=== PATIENT | female | born 1950 | race Caucasian/White ===

== ENCOUNTER → 2018-05-05 08:06 | Outpatient (CLI) | payer MEDICARE, OTHER, SELFPAY ==
[2018-05-05 10:09] LABS: Absolute Lymphocyte Count 1.68 X10^3/ul (0.83-4.51); Basophil# 0.01 X10^3/uL; Basophil% 0.2 % (0-1); Eosinophil# 0.11 X10^3/uL; Eosinophils% 2.2 % (0-5); Hematocrit 36.9 % (37-47); Hemoglobin 11.9 g/dl (12.0-15.0); Lymphocyte # 1.68 X10^3/ul (4.0); Lymphocyte % 33.1 % (19-41); Mean Corp Hgb Conc 32.2 g/gl (32-36); Mean Corpuscular Hgb 27.1 pg (27.0-32.0); Mean Corpuscular Volume 84.1 fL (81-99); Mean Platelet Vol. 9.7 fl (6.2-12.0); Monocyte# 0.27 X10^3/uL; Monocyte% 5.3 % (0-10); Neutrophil # 3.01 X10^3/uL (2.7-7.7); Neutrophil % 59.2 % (47-70); Platelet Count 228 K/mm3 (150-450); RBC Distribution Width CV 13.9 % (11.6-14.6); RBC Distribution Width SD 42.4 fl (35.1-43.9); Red Blood Count 4.39 M/mm3 (4.2-5.4); White Blood Count 5.1 K/mm3 (4.4-11.0)
[2018-05-05 10:15] LABS: POSITIVE COUNT NO; POSITIVE DIFFERENTIAL NO; POSITIVE MORPHOLOGY NO
[2018-05-05 10:17] LABS: Anion Gap 8 (5-15); BUN 18 mg/dL (7-18); BUN/Creat Ratio 24.1 RATIO (10-20); Calcium,Total 8.9 mg/dL (8.5-10.1); Chloride 105 mmol/L (98-107); Cholesterol 244 mg/dL (200); Creatinine, Serum 0.75 mg/dL (0.55-1.02); EST Glomerular Filtration Rate 83 mL/min (>60); Est Glom Filt Rate - Afr Amer 100 mL/min (>60); Glucose 85 mg/dL (74-106); High Density Lipoprotein 33 mg/dL; Sodium Level 140 mmol/L (136-145); Triglycerides 448 mg/dL
== END ==
PROVIDERS: Family Provider Family Medicine; PCP Family Medicine; Visit Provider Family Medicine
DX: I10 Essential (primary) hypertension (principal); D50.9 Iron deficiency anemia, unspecified; E78.00 Pure hypercholesterolemia, unspecified
CPT/HCPCS: 36415; 80048; 80061; 85025

== ENCOUNTER → 2018-07-25 13:44 | Outpatient (CLI) | payer MEDICARE, OTHER, SELFPAY ==
--- NOTE | 2018-07-31 22:00 | LEAS ---
Arterial Study - Arterial Study Arterial Study: This is a 67-year-old female with a history of hypertension and hyperlipidemia. The patient presents with physical findings in her lower extremities, including discoloration, that are suspicious for peripheral arterial occlusive disease. The patient is brought to the noninvasive vascular laboratory at this time for the purpose of bilateral noninvasive lower extremity arterial assessment. Doppler signal assessment was used to evaluate the pulses and ankle level bilaterally. The posterior tibial and dorsalis pedis pulses were triphasic bilaterally. Segmental limb pressures were obtained bilaterally. The right ankle pressure, as determined by posterior tibial pulse, was measured at 174 mmHg. The right ankle pressure, as determined by dorsalis pedis pulse, was measured at 160 mmHg. The right digital pressure was measured at 81 mmHg. The left ankle pressure, as determined a posterior tibial pulse, was measured at 157 mmHg. The left ankle pressure, as determined by dorsalis pedis pulse, was measured at 144 mmHg. The left digital pressure was measured at 82 mmHg. Pulse?volume recordings were obtained bilaterally and segmentally. Waveform amplitudes appeared to be satisfactory at all levels bilaterally, including low thigh, calf, ankle, and digital levels. Resting ankle?brachial indices were calculated bilaterally. The resting right ankle?brachial index was calculated to be 1.19. The resting left ankle?brachial index was calculated to be 1.08. Digital-brachial indices were calculated bilaterally. The right digital-brachial index was calculated to be 0.55. The left digital-brachial index was calculated to be 0.56. Impression: Based upon the findings of this resting noninvasive lower extremity arterial study, arterial perfusion to ankle level appears to be bilaterally normal. Triphasic waveforms were noted at ankle level bilaterally. Resting ankle?brachial indices were bilaterally normal. 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 Clinical correlation is advised.
--- NOTE | 2018-07-31 22:07 | LEAS_ITS ---
Arterial Study - Arterial Study Arterial Study: This is a 67-year-old female with a history of hypertension and hyperlipidemia. The patient presents with physical findings in her lower extremities, including discoloration, that are suspicious for peripheral arterial occlusive disease. The patient is brought to the noninvasive vascular laboratory at this time for the purpose of bilateral noninvasive lower extremity arterial assessment. Doppler signal assessment was used to evaluate the pulses and ankle level bila terally. The posterior tibial and dorsalis pedis pulses were triphasic bilaterally. Segmental limb pressures were obtained bilaterally. The right ankle pressure, as determined by posterior tibial pulse, was measured at 174 mmHg. The right ankle pressure, as determined by dorsalis pedis pulse, was measured at 160 mmHg. The right digital pressure was measured at 81 mmHg. The left ankle pressure, as determined a posterior tibial pulse, was measured at 157 mmHg. The left ankle pressure, as determined by dorsalis pedis pulse, was measured at 144 mmHg. The left digital pressure was measured at 82 mmHg. Pulse?volume recordings were obtained bilaterally and segmentally. Waveform amplitudes appeared to be satisfactory at all levels bilaterally, including low thigh, calf, ankle, and digital levels. Resting ankle?brachial indices were calculated bilaterally. The resting right ankle?brachial index was calculated to be 1.19. The resting left ankle?brachial index was calculated to be 1.08. Digital-brachial indices were calculated bilaterally. The right digital- brachial index was calculated to be 0.55. The left digital-brachial index was calculated to be 0.56. Impression: Based upon the findings of this resting noninvasive lower extremity arterial study, arterial perfusion to ankle level appears to be bilaterally normal. Triphasic waveforms were noted at ankle level bilaterally. Resting ankle?brachial indices were bilaterally normal. 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 Clinical correlation is advised.
== END ==
PROVIDERS: Family Provider Family Medicine; PCP Family Medicine; Referring Provider Podiatrist Foot & Ankle Surgery; Visit Provider Podiatrist Foot & Ankle Surgery
DX: I73.9 Peripheral vascular disease, unspecified (principal); I89.8 Other specified noninfective disorders of lymphatic vessels and lymph nodes
CPT/HCPCS: 93923

== ENCOUNTER → 2018-08-03 08:28 | Outpatient (CLI) | payer MEDICARE, OTHER, SELFPAY ==
--- NOTE | 2018-08-03 08:30 | RAD_ITS ---
PROCEDURE: Fluoroscopic guided left shoulder Injection DATE: August 03, 2018. INDICATION: Female, 67 years old. Chronic left shoulder pain. PHYSICIAN: Devon Orozco M.D. MEDICATIONS: 12 mg of betamethasone and 4 cc of 1% lidocaine. 2% Lidocaine administered subcutaneously for local anesthesia. ACCESS SITE: Left shoulder. NEEDLE: 22-gauge spinal needle. FLUOROSCOPY TIME (if supplied): (36 seconds) minutes/seconds. One image was obtained. FINDINGS: The risks, benefits, and alternatives to the procedure were explained to the patient. The specific risks of bleeding, infection, and neurovascular injury were detailed and accepted. Witnessed informed consent was obtained. A 22-gauge spinal needle was positioned under radiographic fluoroscopic localization. Approximately 2 cc of Isovue-300 instilled for localization purposes. Medication was then injected. The patient tolerated the procedure well without any immediate complications. The patient was placed supine with head elevated and returned to the floor in stable condition. RAD/Inj/Asp James Jt Should/Hip/Knee IMPRESSION: 1. Successful fluoroscopic guided left shoulder injection. Electronically Signed: Devon Orozco MD at 9:47 EST Tel [phone], Service support ,
--- OUTSIDE RECORDS SUMMARY | 2018-09-19 03:38 | XMS RPT_ITS ---
:1950 Author Organization OHIP Care Team Providers Name Role Phone EVIE PEREZ Referring Unavailable ANTIONE GIL ([facility]) Referring Unavailable ANTIONE GIL ([facility]) Referring Unavailable EVIE PEREZ Attending Unavailable EVIE PEREZ Referring Unavailable Maynor Black Attending Unavailable Maynor Black Referring Unavailable Maynor Black Primary Care Unavailable Maynor Black Attending Unavailable Maynor Black Primary Care Unavailable Bren Elias Attending Unavailable Bren Elias Referring Unavailable Maynor Black Primary Care Unavailable Anton Zimmerman Attending Unavailable Anton Zimmerman Referring Unavailable Maynor Black Primary Care Unavailable PROBLEMS PROBLEMS DATE TYPE CONDITION / CODE ATTENDING STATUS SOURCE 05/11/2018 Unknown I10 - Essential Maynor Black Active [place] (primary) [facility] hypertension / Hospital I10(ICD-10) Repository 04/20/2018 Active Unknown / NA Active [facility] UNK(Unknown) [facility] [place] Repository 03/11/2018 Active Encounter for NA Active [facility] screening [facility] [place] mammogram for Repository malignant neoplasm of breast / Z12.31(ICD-10) PROCEDURES PROCEDURES No Procedure Records FoundRESULTS RESULTS LIPID PROFILE Collected: 09/13/2018 Status: F Source: [place] 10:05 AM [facility] REPOSITORY Order Comment: Order Date: 05/16/18 Order Info: [id number] - LIPID TYPE CODE TESTS RESULT OUT OF RANGE REFERENCE UNITS LAB L501.4900 200 mg/dL High CHOL 247 Result Comment: <200 mg/dL Desirable 200-240 mg/dL Borderline >240 mg/dL High Risk LAB L501.5000 mg/dL High TRIG 204 Result Comment: The drugs N-Acetylcysteine and Metamizole may falsely depress this assay. Serum Triglycerides Reference Interval Normal <150 mg/dL Borderline high 150 - 199 mg/dL High 200 - 499 mg/dL Very High > or = 500 mg/dL LAB L501.6400 mg/dL Normal HDL 45 Result Comment: The drugs N-Acetylcysteine and Metamizole may falsely depress this assay. Reference Range HDL <40 mg/dL Low HDL Cholesterol HDL >or= 60 mg/dL High HDL Cholesterol LAB L501.6500 0-130 mg/dL High LDL 161 LAB L501.6600 5-40 mg/dL High VLDL 41 Performed By: #### L500.4100 #### [facility] [address] [place], [address] INJ/ASP MARI JT Observed: 08/03/2018 Status: F Source: [place] SHOULD/HIP/KNEE 8:30 AM [facility] Imaging Services [address] [place] [address] Inj/Asp Mari Jt Should/Hip/Knee MR#: [id number] Acct: [id number] Name: SHELLI BRADLEY Rep #: [id number] : 1950 F 67 From: Devon Orozco MD PCP: Maynor Black MD Status: REG CLI Study: Inj/Asp Mari Jt Should/Hip/Knee Date of Exam: 08/03/18 Exam# [id number] Ordering Dr: Anton Zimmerman MD PROCEDURE: Fluoroscopic guided left shoulder Injection DATE: August 03, 2018. INDICATION: Female, 67 years old. Chronic left shoulder pain. PHYSICIAN: Devon Orozco M.D. MEDICATIONS: 12 mg of betamethasone and 4 cc of 1% lidocaine. 2% Lidocaine administered subcutaneously for local anesthesia. ACCESS SITE: Left shoulder. NEEDLE: 22-gauge spinal needle. FLUOROSCOPY TIME (if supplied): (36 seconds) minutes/seconds. One image was obtained. FINDINGS: The risks, benefits, and alternatives to the procedure were explained to the patient. The specific risks of bleeding, infection, and neurovascular injury were detailed and accepted. Witnessed informed consent was obtained. A 22-gauge spinal needle was positioned under radiographic fluoroscopic localization. Approximately 2 cc of Isovue-300 instilled for localization purposes. Medication was then injected. The patient tolerated the procedure well without any immediate complications. The patient was placed supine with head elevated and returned to the floor in stable condition. RAD/Inj/Asp Mari Jt Should/Hip/Knee IMPRESSION: 1. Successful fluoroscopic guided left shoulder injection. Electronically Signed: Devon Orozco MD at 9:47 EST Tel [phone], Service support , CC: Maynor Black MD; Anton Zimmerman MD Personal Chef: Signed LOWER EXT ARTERIAL Observed: 07/31/2018 Status: F Source: [facility] 10:07 PM [facility] Cardiovascular Services [address] [place] [id number] 07/31/18 2200 MR#: [id number] Acct: [id number] Name: ISABELANT GUNNLila Tim Rep #: [id number] : 1950 67 From: Brad Holder MD Attending Dr: Bren Elias DPM Status: REG CLI Ordering Dr: Date: 07/31/18 Location: CVS Sex: F C Admitted: Arterial Study - Arterial Study Arterial Study: This is a 67-year-old female with a history of hypertension and hyperlipidemia. The patient presents with physical findings in her lower extremities, including discoloration, that are suspicious for peripheral arterial occlusive disease. The patient is brought to the noninvasive vascular laboratory at this time for the purpose of bilateral noninvasive lower extremity arterial assessment. Doppler signal assessment was used to evaluate the pulses and ankle level bilaterally. The posterior tibial and dorsalis pedis pulses were triphasic bilaterally. Segmental limb pressures were obtained bilaterally. The right ankle pressure, as determined by posterior tibial pulse, was measured at 174 mmHg. The right ankle pressure, as determined by dorsalis pedis pulse, was measured at 160 mmHg. The right digital pressure was measured at 81 mmHg. The left ankle pressure, as determined a posterior tibial pulse, was measured at 157 mmHg. The left ankle pressure, as determined by dorsalis pedis pulse, was measured at 144 mmHg. The left digital pressure was measured at 82 mmHg. Pulse volume recordings were obtained bilaterally and segmentally. Waveform amplitudes appeared to be satisfactory at all levels bilaterally, including low thigh, calf, ankle, and digital levels. Resting ankle brachial indices were calculated bilaterally. The resting right ankle brachial index was calculated to be 1.19. The resting left ankle brachial index was calculated to be 1.08. Digital-brachial indices were calculated bilaterally. The right digital-brachial index was calculated to be 0.55. The left digital-brachial index was calculated to be 0.56. Impression: Based upon the findings of this resting noninvasive lower extremity arterial study, arterial perfusion to ankle level appears to be bilaterally normal. Triphasic waveforms were noted at ankle level bilaterally. Resting ankle brachial indices were bilaterally normal. 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 Clinical correlation is advised. 07/31/182206 <Electronically signed by Brad Holder MD> Date Brad Holder MD CC: XIOMARA Elias; Maynor Black MD Date Dictated: 07/31/182199 Date Transcribed: 07/31/182199 Personal Chef: SUZANNA Signed PROGRESS Observed: 06/13/2018 Status: COMPLETED Source: [place] 9:13 AM [facility] [place] REPOSITORY HNO ID: [id number] Author: Dinora Llamasf Service: (none) Author Type: Nurse Practitioner Type: Progress Notes Filed: 06/13/2018 10:05 AM Note Text: Shelli Bradley is a 67 year old who presents for her annual gynecologic exam with complaints, stress incontince. Postmenopausal: Yes HRT use: No. Last Pap: 2017 normal HPV: 2012 negative History of abnormal pap: No Last mammogram: 2018 call back normal History of abnormal mammogram: No Sexually active: Yes Pain with intercourse: No Postcoital bleeding: No Hot flashes: No Night sweats: No Vaginal dryness: No Obstetric History T3 L3 SAB0 TAB0 Ectopic0 Multiple0 Live Births0 Comment: 5 grandkids PAST MEDICAL HISTORY Diagnosis Date - Allergic rhinitis, cause unspecified Allergic rhinitis - Essential hypertension, benign MILD PAST SURGICAL HISTORY Procedure Laterality Date - CARPAL TUNNEL Right 09/2016 and trigger finger - CARPAL TUNNEL Left 01/2018 with trigger finger - ORAL SURGERY PROCEDURE [place] FAMILY HISTORY Problem Relation Age of Onset - Hypertension Mother - Heart Father CA - Breast Cancer Sister 64 brca negative - Heart Paternal Uncle CA - Cancer Paternal Uncle - Cancer Paternal Uncle - Cancer Paternal Aunt SOCIAL HISTORY Social History Substance Use Topics - Smoking status: Never Smoker - Smokeless tobacco: Never Used - Alcohol use Yes Comment: Rarely REVIEW OF SYSTEMS Abdomen: No abdominal pain, nausea, vomiting, diarrhea, or constipation. No bloating, early satiety, indigestion, or increased flatulence. Bladder: No dysuria, gross hematuria, urinary frequency, +urinary urgency some incontinence Breast: No breast lumps, nipple d/c, overlying skin changes, redness or skin retraction Allergies and current medication updated:Yes EXAM: Ht 5' 1.5 (1.56m) Wt 190 lb (86.2kg) LMP 01/28/2005 BMI 35.32 kg/(m2). GENERAL: pleasant, female in no apparent distress HEENT: Normocephalic, atraumatic, mucus membranes moist and no lesions NECK: Supple, full range of motion, no adenopathy and thyroid normal DERMATOLOGY: Normal, without lesions, non-icteric and non-hirsute BREAST: soft, non-tender, symmetric, no dominant mass, normal nipple-areolar complex, no lymphadenopathy and no nipple discharge CHEST: Normal inspiratory effort ABDOMEN: soft, non-tender and no masses PELVIC: external genitalia normal, normal Bartholin's glands, urethra, Graball's glands, no vulvar lesions, no cervical lesions, physiologic discharge present, normal appearing perineal body and perianal region, grade 1 cystocele BIMANUAL: uterus normal size, shape and consistency, no adnexal masses, non-tender and no cervical motion tenderness RECTOVAGINAL: deferred. NEURO: alert and oriented x3,exam grossly non-focal EXTREMITIES: normal ASSESSMENT/PLAN: 1) Health maintenance: Pap/HPV screening no longer needed Mammogram up to date Nutrition, exercise and routine health maintenance exams reviewed. Calcium/Vitamin D supplementation information provided. 2) Follow up one year or sooner as needed Evie Perez MD CNOV Observed: 06/13/2018 Status: COMPLETED Source: [place] 9:00 AM [facility] REPOSITORY Office Visit (WOOB) SHELLI BRADLEY ([id number]) 1950 F Date Time Provider Department 06/13/18 9:00 AM DINORA SALCEDO (HUN[place]) WOOB During your visit today, we recorded the following information about you: Blood pressure Weight Height 132/74 86.2 kg 1.562 m Dinora Salcedo APRN.CNP 06/13/2018 10:05 AM Signed Shelli Bradley is a 67 year old who presents for her annual gynecologic exam with complaints, stress incontince. Postmenopausal: Yes HRT use: No. Last Pap: 2016 normal HPV: 2011 negative History of abnormal pap: No Last mammogram: 2018 call back normal History of abnormal mammogram: No Sexually active: Yes Pain with intercourse: No Postcoital bleeding: No Hot flashes: No Night sweats: No Vaginal dryness: No Obstetric History T3 L3 SAB0 TAB0 Ectopic0 Multiple0 Live Births0 Comment: 5 grandkids PAST MEDICAL HISTORY Diagnosis Date - Allergic rhinitis, cause unspecified Allergic rhinitis - Essential hypertension, benign MILD PAST SURGICAL HISTORY Procedure Laterality Date - CARPAL TUNNEL Right 09/2016 and trigger finger - CARPAL TUNNEL Left 01/2018 with trigger finger - ORAL SURGERY PROCEDURE [place] FAMILY HISTORY Problem Relation Age of Onset - Hypertension Mother - Heart Father CA - Breast Cancer Sister 64 brca negative - Heart Paternal Uncle CA - Cancer Paternal Uncle - Cancer Paternal Uncle - Cancer Paternal Aunt SOCIAL HISTORY Social History Substance Use Topics - Smoking status: Never Smoker - Smokeless tobacco: Never Used - Alcohol use Yes Comment: Rarely REVIEW OF SYSTEMS Abdomen: No abdominal pain, nausea, vomiting, diarrhea, or constipation. No bloating, early satiety, indigestion, or increased flatulence. Bladder: No dysuria, gross hematuria, urinary frequency, +urinary urgency some incontinence Breast: No breast lumps, nipple d/c, overlying skin changes, redness or skin retraction Allergies and current medication updated:Yes EXAM: Ht 5' 1.5 (1.56m) Wt 190 lb (86.2kg) LMP 01/28/2005 BMI 35.32 kg/(m2). GENERAL: pleasant, female in no apparent distress HEENT: Normocephalic, atraumatic, mucus membranes moist and no lesions NECK: Supple, full range of motion, no adenopathy and thyroid normal DERMATOLOGY: Normal, without lesions, non-icteric and non-hirsute BREAST: soft, non-tender, symmetric, no dominant mass, normal nipple-areolar complex, no lymphadenopathy and no nipple discharge CHEST: Normal inspiratory effort ABDOMEN: soft, non-tender and no masses PELVIC: external genitalia normal, normal Bartholin's glands, urethra, Graball's glands, no vulvar lesions, no cervical lesions, physiologic discharge present, normal appearing perineal body and perianal region, grade 1 cystocele BIMANUAL: uterus normal size, shape and consistency, no adnexal masses, non-tender and no cervical motion tenderness RECTOVAGINAL: deferred. NEURO: alert and oriented x3,exam grossly non-focal EXTREMITIES: normal ASSESSMENT/PLAN: 1) Health maintenance: Pap/HPV screening no longer needed Mammogram up to date Nutrition, exercise and routine health maintenance exams reviewed. Calcium/Vitamin D supplementation information provided. 2) Follow up one year or sooner as needed Evie Perez MD Referring Provider: EVIE PEREZ [[id number]] Allergies As of Date: 06/13/2018 Noted Allergy Reaction SEASONAL ALLERGIES 12/24/2014 14 - Other: See Comments Comments: Environmental Allergies-Sinus Issues Date Reviewed: 06/13/2018 Reviewed by: Dinora Nunez) [place] - Fully Assessed Reason for Visit: Yearly Exam [187] Primary Visit Diagnosis:Encounter for routine gynecologic examination in Medicare patient [Z01.419] Other Visit Diagnosis:Encounter for screening mammogram for breast cancer [Z12.31] Order(s):[facility] SCREENING [[id number]] Order #: [id number] FUTURE Prescriptions as of 06/13/2018 Sig: VENTOLIN HFA 90 MCG/ACTUATION* DICLOFENAC SODIUM 75 MG TABLE* ROSUVASTATIN 10 MG TABLET OMEPRAZOLE MAGNESIUM 20 MG TA* Take 20 mg by mouth. LISINOPRIL 10 MG-HYDROCHLOROT* METOPROLOL SUCCINATE ER 100 M* COMPOUNDED PRESCRIPTION Allergy shots MULTIVITAMIN ORAL Take by mouth. ASPIRIN, BUFFERED 81 MG TABLET Take by mouth. JOSEFINA ORAL Take by mouth. ZOLOFT 50 MG TABLET Problem List As Of Date 06/13/2018 Noted Resolved Family history of BRCA gene positive [Z84.81] INVALID FOR* Medications Discontinued During This Encounter hydrochlorothiazide (HYDRODIURIL, ES* 06/13/2018 Class: Historical Med Route: ORAL Sig: Take 25 mg by mouth once daily. Disc: Dosage adjustment TOPROL XL 100 MG 24 HR TAB 0 02/08/2006 06/13/2018 Class: Historical Med Route: ORAL Sig: Disc: Reason for discontinue is not on file. CETIRIZINE HCL (ZYRTEC ORAL) 06/13/2018 Class: Historical Med Route: ORAL Sig: Take by mouth. Disc: Discontinued by Patient Disposition: Return in 1 year (on 06/13/2019) for Annual Exam. Follow-up and Disposition History Recorded Encounter Status:Closed by DINORA SALCEDO on 06/13/18 CBC W/DIFF, AUTOMATED Collected: 05/05/2018 Status: F Source: [place] 8:09 AM [facility] Order Comment: Order Date: 03/15/18 Order Info: [id number] - CBCD TYPE CODE TESTS RESULT OUT OF RANGE REFERENCE UNITS LAB L100.1000 4.4-11.0 K/mm3 Normal WBC 5.1 LAB L100.1200 4.2-5.4 M/mm3 Normal RBC 4.39 LAB L100.1300 12.0-15.0 g/dl Low HGB 11.9 LAB L100.1400 37-47 % Low HCT 36.9 LAB L100.1500 81-99 fL Normal MCV 84.1 LAB L100.1600 27.0-32.0 pg Normal MCH 27.1 LAB L100.1700 32-36 g/gl Normal MCHC 32.2 LAB L100.1810 11.6-14.6 % Normal RDW CV 13.9 LAB L100.1820 35.1-43.9 fl Normal RDW SD 42.4 LAB L100.1900 150-450 K/mm3 Normal PLT 228 LAB L100.2000 6.2-12.0 fl Normal MPV 9.7 LAB L100.2100 47-70 % Normal NEUT% 59.2 LAB L100.2200 19-41 % Normal LY% 33.1 LAB L100.2300 0-10 % Normal MONO% 5.3 LAB L100.2400 0-5 % Normal EO% 2.2 LAB L100.2500 0-1 % Normal BASO% 0.2 LAB L100.2550 0.0-0.9 % Normal IM GRAN % 0.000 Result Comment: IG% - Immature Granulocytes (promyelocytes, myelocytes and metamyelocytes) > 1% indicates that a LEFT SHIFT is Present. LAB L100.2620 2.0-7.7 X10 3/uL Normal Absolute Neut 3.0 LAB L100.2720 0.83-4.51 X10 3/ul Normal Absolute Lymph 1.68 Performed By: #### L100.0100, L500.2500, L500.4100 #### [facility] [address] [place], [address] BASIC METABOLIC Collected: 05/05/2018 Status: F Source: [place] PROFILE ([facility]) 8:09 AM [facility] Order Comment: Order Date: 03/15/18 Order Info: [id number] - BMP Order Info: [id number] - LIPID TYPE CODE TESTS RESULT OUT OF RANGE REFERENCE UNITS LAB L501.0100 74-106 mg/dL Normal GLU 85 Result Comment: Please note revised GLUCOSE reference range effective 2017. LAB L501.1000 7-18 mg/dL Normal BUN 18 LAB L501.1100 0.55-1.02 mg/dL Normal CREAT,SERUM 0.75 Result Comment: The validity of the calculated GFR AND GFRAA in patients over 70 years has not been determined. Clinical correlation is essential. LAB L501.1110 >60 mL/min Normal EST GFR 83 Result Comment: Non- GFR Calc LAB L501.1115 >60 mL/min Normal EST GFR - AA 100 Result Comment: GFR Calc LAB L501.1300 10-20 RATIO High BUN/CRE 24.1 LAB L501.2200 8.5-10.1 mg/dL CA Normal 8.9 LAB L501.5300 136-145 mmol/L NA Normal 140 LAB L501.5600 3.5-5.1 mmol/L K Normal 4.0 LAB L501.5900 98-107 mmol/L CL Normal 105 LAB L501.6100 21.0-32.0 mmol/L Normal CO2 27.0 LAB L501.6200 5-15 Normal GAP 8 Performed By: #### L100.0100, L500.2500, L500.4100 #### [facility] [address] [place], [address] LIPID PROFILE Collected: 05/05/2018 Status: F Source: [place] 8:09 AM [facility] Order Comment: Order Date: 03/15/18 Order Info: [id number] - BMP Order Info: 17213-9 - LIPID TYPE CODE TESTS RESULT OUT OF RANGE REFERENCE UNITS LAB L501.4900 200 mg/dL High CHOL 244 Result Comment: <200 mg/dL Desirable 200-240 mg/dL Borderline >240 mg/dL High Risk LAB L501.5000 mg/dL High TRIG 448 Result Comment: The drugs N-Acetylcysteine and Metamizole may falsely depress this assay. TRIGLYCERIDE IS GREATER THAN 400 mg/dL. LDL RESULT IS INVALID AND WILL NOT BE REPORTED. Serum Triglycerides Reference Interval Normal <150 mg/dL Borderline high 150 - 199 mg/dL High 200 - 499 mg/dL Very High > or = 500 mg/dL LAB L501.6400 mg/dL Low HDL 33 Result Comment: The drugs N-Acetylcysteine and Metamizole may falsely depress this assay. Reference Range HDL <40 mg/dL Low HDL Cholesterol HDL >or= 60 mg/dL High HDL Cholesterol LAB L501.6500 0-130 mg/dL Test Normal not performed LDL LAB L501.6600 5-40 mg/dL Test Normal not performed VLDL Performed By: #### L100.0100, L500.2500, L500.4100 #### [place] [facility] [place], [address] PROGRESS Observed: 04/20/2018 Status: COMPLETED Source: [place] 9:04 AM [facility] [place] REPOSITORY HNO ID: [id number] Author: Sweta Asencio Rdms Service: (none) Author Type: (none) Type: Progress Notes Filed: 04/20/2018 9:05 AM Note Text: Radiology Service Progress Note PATIENT NAME: Shelli Bradley DATE OF SERVICE: April 20, 2018 TIME: 9:04 AM PATIENT IDENTITY VERIFICATION COMPLETED USING TWO (2) METHODS: Patient confirmed name verbally and Date of . PATIENT GENDER DATA: Female. status: : No status: NO. PATIENT RELEVANT IMPLANT DATA REVIEWED: Not Applicable RADIOLOGY DEPARTMENT: Ultrasound PERIPHERAL IV DATA: Not applicable SIGNED BY: Sweta Asencio Rdms April 20, 2018 9:04 AM [facility]CO Observed: 04/20/2018 Status: COMPLETED Source: [place] 8:56 AM [facility] REPOSITORY HNO ID: [id number] Author: Mammography Coordinator Service: (none) Author Type: Physician Type: Letter Filed: 04/21/2018 11:31 PM Note Text: April 20, 2018 PID: [id number] Shelli Campos Isabellexy [address] [place] [address] Dear Ms. Bradley, We are pleased to inform you that the results of your recent breast imaging exam on 04/20/2018 are normal and we recommend that you return to your annual screening Mammography schedule. Early detection of cancer is very important. We also understand recommendations regarding breast cancer screening are controversial. Please discuss with your primary care provider which strategy is best for you and whether a mammogram is right for you. Your imaging studies and report will be kept on file at [facility] as part of your permanent medical record and are available for your continuing care. Thank you for allowing us to help in meeting your health care needs. Sincerely, Dr. Bustamante Interpreting Radiologist [facility] (Return to Annual Mammogram schedule) [facility] Observed: 04/20/2018 Status: COMPLETED Source: [place] 8:56 AM [facility] REPOSITORY HNO ID: [id number] Author: Mammography Coordinator Service: (none) Author Type: Physician Type: Letter Filed: 04/21/2018 11:31 PM Note Text: April 20, 2018 PID: [id number] Shelli Bradley [address] [place] [address] Dear Ms. Bradley, We are pleased to inform you that the results of your recent breast imaging exam on 04/20/2018 are normal and we recommend that you return to your annual screening Mammography schedule. Early detection of cancer is very important. We also understand recommendations regarding breast cancer screening are controversial. Please discuss with your primary care provider which strategy is best for you and whether a mammogram is right for you. Your imaging studies and report will be kept on file at [facility] as part of your permanent medical record and are available for your continuing care. Thank you for allowing us to help in meeting your health care needs. Sincerely, Dr. Bustamante Interpreting Radiologist [facility] (Return to Annual Mammogram schedule) [facility] Observed: 04/20/2018 Status: F Source: [facility] 8:52 AM [facility] REPOSITORY * * *Final Report* * * DATE OF EXAM: Apr 20 2018 8:52AM [facility] [id number] - Meilimei US BREAST LTD LT / PROCEDURE REASON: call back left breast / abnormal mammogram * * * * Physician Interpretation * * * * #[id number] - [facility] DIAGNOSTIC LT UNILATERAL LEFT DIGITAL DIAGNOSTIC MAMMOGRAM WITH CAD: 04/20/2018 HISTORY: Call Back Left Breast / Abnormal Mammogram. RESULT: TECHNIQUE: The study was acquired using full field digital technology and interpreted from soft copy. Current study was also evaluated with a Computer Aided Detection (CAD). Comparison is made to exams dated: 03/11/2018 mammogram, 03/04/2017 mammogram, 01/15/2016 mammogram, and 12/24/2014 mammogram - [facility]. The tissue of the left breast is predominantly fatty. Prior density is no longer seen in the left breast. No significant masses, calcifications, or other findings are seen in the breast. NEGATIVE There is no mammographic evidence of malignancy. #[id number] - [facility] Epuramat BREAST LTD LT ULTRASOUND OF LEFT BREAST: 04/20/2018 RESULT: Comparison is made to exams dated: 03/11/2018 mammogram, 03/04/2017 mammogram, 01/15/2016 mammogram, and 12/24/2014 mammogram - [facility]. Real-time ultrasound of the left breast was performed. A few normal appearing retroareolar ducts are seen. There are no masses otherwise. IMPRESSION: BENIGN FINDING There is no sonographic evidence of malignancy. Return to annual mammogram screening schedule is recommended. Maximiliano beltrán/daphnie:04/20/2018 08:56:33 Mobile Application Architect: Jammie OLEA(Aimee)(Katty), [facility] letter sent: Return to Annual Mammogram BI-RADS: 1 Negative Ultrasound BI-RADS: 2 Benign finding Personal Chef: Daphnie Transcribe Date/Time: Apr 20 2018 8:37A Dictated by : MAXIMILIANO BUSTAMANTE MD This examination was interpreted and the report reviewed and electronically signed by: MAXIMILIANO BUSTAMANTE MD on Apr 20 2018 8:56AM EST [id number] [facility] DIAGNOSTIC LT Observed: 04/20/2018 Status: F Source: [place] 8:37 AM [facility] REPOSITORY * * *Final Report* * * DATE OF EXAM: Apr 20 2018 8:37AM [facility] 0621 - [facility] DIAGNOSTIC LT / PROCEDURE REASON: call back left breast / abnormal mammogram * * * * Physician Interpretation * * * * RESULT: #[id number] - [facility] DIAGNOSTIC LT UNILATERAL LEFT DIGITAL DIAGNOSTIC MAMMOGRAM WITH CAD: 04/20/2018 HISTORY: Call Back Left Breast / Abnormal Mammogram. RESULT: TECHNIQUE: The study was acquired using full field digital technology and interpreted from soft copy. Current study was also evaluated with a Computer Aided Detection (CAD). Comparison is made to exams dated: 03/11/2018 mammogram, 03/04/2017 mammogram, 01/15/2016 mammogram, and 12/24/2014 mammogram - [facility]. The tissue of the left breast is predominantly fatty. Prior density is no longer seen in the left breast. No significant masses, calcifications, or other findings are seen in the breast. NEGATIVE There is no mammographic evidence of malignancy. #[id number] - [facility] US BREAST LTD LT ULTRASOUND OF LEFT BREAST: 04/20/2018 RESULT: Comparison is made to exams dated: 03/11/2018 mammogram, 03/04/2017 mammogram, 01/15/2016 mammogram, and 12/24/2014 mammogram - [facility]. Real-time ultrasound of the left breast was performed. A few normal appearing retroareolar ducts are seen. There are no masses otherwise. IMPRESSION: BENIGN FINDING There is no sonographic evidence of malignancy. Return to annual mammogram screening schedule is recommended. Maximiliano beltrán/daphnie:04/20/2018 08:56:33 Mobile Application Architect: Jammie OLEA (R)(Katty), [facility] letter sent: Return to Annual Mammogram BI-RADS: 1 Negative Ultrasound BI-RADS: 2 Benign finding Personal Chef: Daphnie Transcribe Date/Time: Apr 20 2018 8:37A Dictated by: MAXIMILIANO BUSTAMANTE MD This examination was interpreted and the report reviewed and electronically signed by: MAXIMILIANO BUSTAMANTE MD on Apr 20 2018 8:56AM EST [id number] CNCO Observed: 03/11/2018 Status: COMPLETED Source: [place] 5:29 PM [facility] REPOSITORY HNO ID: [id number] Author: Mammography Coordinator Service: (none) Author Type: Physician Type: Letter Filed: 03/14/2018 11:33 PM Note Text: March 11, 2018 PID: [id number] Shelli Bradley [address] [place] [address] Dear Ms. Bradley, Your recent breast imaging exam on 03/11/2018 showed a possible finding that requires additional imaging studies for a complete evaluation. Most such findings are probably benign (not cancer). Please call [phone] or [phone] to schedule an appointment for your additional imaging if you have not already done so. Your breast images and report will be kept on file here as part of your permanent medical record and are available for your continuing care. Thank you for allowing us to help in meeting your health care needs. Sincerely, Dr. Aragon Interpreting Radiologist [facility] (Additional imaging) PROCEDURE Observed: 03/11/2018 Status: COMPLETED Source: [place] 9:10 AM [facility] REPOSITORY HNO ID: [id number] Author: Marcy Shahid (Rt) Service: (none) Author Type: Otolaryngology Rep Type: Procedures Filed: 03/11/2018 9:10 AM Note Text: Radiology Service Progress Note PATIENT NAME: Shelli Bradley DATE OF SERVICE: March 11, 2018 TIME: 9:10 AM PATIENT IDENTITY VERIFICATION COMPLETED USING TWO (2) METHODS: Patient confirmed name verbally and Date of . PATIENT GENDER DATA: Female. status: : No status: NO. PATIENT RELEVANT IMPLANT DATA REVIEWED: Not Applicable RADIOLOGY DEPARTMENT: [facility] DATA: Not applicable SIGNED BY: RT Kleber March 11, 2018 9:10 AM [facility] SCREENING Observed: 03/11/2018 Status: F Source: [place] 9:09 AM [facility] REPOSITORY * * *Final Report* * * DATE OF EXAM: Mar 11 2018 9:09AM [facility] 0581 - [facility] SCREENING / PROCEDURE REASON: Encounter for screening mammogram for malignant neoplasm of breast * * * * Physician Interpretation * * * * RESULT: #[id number] - [facility] SCREENING BILATERAL DIGITAL SCREENING MAMMOGRAM WITH CAD: 03/11/2018 HISTORY: /Screening Mammogram - patient reports NO symptoms. RESULT: TECHNIQUE: The study was acquired using full field digital technology and interpreted from soft copy. Current study was also evaluated with a Computer Aided Detection (CAD). Comparison is made to exams dated: 03/04/2017 mammogram, 01/15/2016 mammogram, 12/24/2014 mammogram, 11/28/2012 mammogram, and 11/04/2011 mammogram - [facility]. The tissue of both breasts is predominantly fatty. There is a focal asymmetry in the left breast central to the nipple. This is a tubular asymmetry in the retroareolar region. No other significant masses, calcifications, or other findings are seen in either breast. IMPRESSION: INCOMPLETE: NEEDS ADDITIONAL IMAGING EVALUATION The focal asymmetry in the left breast is indeterminate. This is a tubular asymmetry in the retroareolar region which likely represents a dilated duct. Additional views with possible ultrasound are recommended. The exam was reviewed by a staff physician. Belgica hinson jd/penrad:03/11/2018 17:29:10 Mobile Application Architect: Nancy OLEA(R)(M), [facility] letter sent: Additional Imaging Needed Mammogram BI-RADS: 0 Incomplete: needs additional imaging evaluation If this report indicates you need additional imaging, and it has NOT yet been performed, please call , to schedule. We sincerely thank you for choosing the [facility] for your breast imaging needs. Personal Chef: Daphnie Transcribe Date/Time: Mar 11 2018 9:09A Dictated by: EDWARD MAGAÑA MD This examination was interpreted and the report reviewed and electronically signed by: BELGICA ARAGON MD on Mar 11 2018 5:29PM EST [id number] ALLERGIES ALLERGIES DATE TYPE / CODE NAME / CODE REACTION SEVERITY SOURCE 12/24/2014 Environ/420 SEASONAL OTHER: SEE C [facility] [id number](SNOM ALLERGIES [facility] [place] [facility]) Repository 06/07/2013 Drug No Known Unknown [facility] Allergy/416 Allergies/U32028 [facility] 187856(SNOM 0388(RXNORM) Repository ED CT) ENCOUNTERS ENCOUNTERS ADMIT/DISCHARGE ACCOUNT ADMITTING ENCOUNTER LOCATION SOURCE NUMBER CLASS 09/13/2018 [id number] [facility] ing:MTLAB Repository 08/03/2018 [id number] [facility] ing:RAD Repository 07/25/2018 [id number] [facility] ing:[facility] Repository 06/13/2018/06/14/[id number] Repository 05/05/2018 [id number] [facility] ing:MFPLAB Repository 04/20/2018/04/20/20 [id number] Ambulatory [address] Repository 04/20/2018/04/20/20 [id number] Ambulatory [address] Repository 03/11/2018/03/11/[id number] Repository PAYERS PAYERS ENCOUNTER GUARANTOR PAYER SUBSCRIBER SOURCE 09/13/2018 [id number] Insurance:SELF PAY [facility] YAMILA dc Number: Effective Repository [id number]: ([phone]) Date:2018-09-13 [phone] () 08/03/2018 SHELLI P Primary SHELLI P [place] [id number] Insurance:MEDICARE LINNICKDOB: Community [place] PART A [facility] [id number]: Repository [id number]: 330 [id number] [phone] (HP) Date:2018-07-25 08/03/2018 Secondary SHELLI P [place] Insurance:AARPPolicy LINNICKDOB: Community Number: [id number] Hospital [id number] Repository Date:[id number] [facility] [id number], [place] [address]AM: 08/03/2018 Tertiary NOT GIVENUNK Michelle Insurance:SELF PAY [facility] Number: Effective Repository Date:2018-07-25 07/25/2018 SHELLI P Primary SHELLI P Michelle [id number] Insurance:MEDICARE LINNICKDOB: [facility] [id number] [place] Number: Repository [id number]: 330 [id number] [phone] () Date:2018-07-20 07/25/2018 Secondary SHELLI P Michelle Insurance:AARPPolicy LINNICKDOB: Community Number: [id number] [id number] Repository Date:[id number] [facility] [id number], [place] [address]OM: 07/25/2018 Tertiary NOT GIVENUNK Michelle Insurance:SELF PAY [facility] Number: Effective Repository Date:2018-07-20 05/05/2018 Shelli P Primary Shelli P Michelle [id number] Insurance:MEDICARE LinnickDOB: Community [place] PART A [id number] [place] Number: Repository [id number]: 330 [id number] [phone] (HP) Date:2018-05-05 05/05/2018 Secondary Shelli P Michelle Insurance:Trever LopezB: Community Number: [id number] Hospital [id number] Repository Date:[id number], [place] [address]VR: 05/05/2018 Tertiary NOT GIVENUNK Michelle Insurance:SELF PAY [facility] Number: Effective Repository Date:2018-05-05
== END ==
PROVIDERS: Family Provider Family Medicine; PCP Family Medicine; Referring Provider Specialist; Visit Provider Specialist
DX: M19.012 Primary osteoarthritis, left shoulder (principal)
CPT/HCPCS: 20610; 77002; J0702

== ENCOUNTER → 2018-09-13 09:54 | Outpatient (CLI) | payer MEDICARE, SELFPAY ==
[2018-09-13 12:46] LABS: Cholesterol 247 mg/dL (200); High Density Lipoprotein 45 mg/dL; Triglycerides 204 mg/dL; Very Low Density Lipoprotein 41 mg/dL (5-40)
--- OUTSIDE RECORDS SUMMARY | 2018-11-15 12:14 | XMS RPT_ITS ---
:1950 Author Organization OHIP Care Team Providers Name Role Phone EVIE PEREZ Referring Unavailable ANTIONE GIL (CN) Referring Unavailable ANTIONE GIL (CN) Referring Unavailable EVIE PEREZ Attending Unavailable EVIE PEREZ Referring Unavailable Maynor Black Attending Unavailable Maynor Black Referring Unavailable Black, Maynor Primary Care Unavailable Maynor Black Attending Unavailable Wayne, Maynor Primary Care Unavailable Bren Elias Attending Unavailable Bren Elias Referring Unavailable Maynor Black Primary Care Unavailable Anton Zimmerman Attending Unavailable Anton Zimmerman Referring Unavailable Maynor Black Primary Care Unavailable PROBLEMS PROBLEMS DATE TYPE CONDITION / CODE ATTENDING STATUS SOURCE Unknown 272.0 - Pure Maynor Black Active [place] 9 hypercholesterolemia / Community 272.0(ICD-9) Hospital Repository Unknown E78.00 - Pure Maynor Black Active [place] 9 hypercholesterolemia, Community unspecified / Hospital E78.00(ICD-10) Repository Unknown I10 - Essential (primary) Maynor Black Active Michelle 8 hypertension / Community I10(ICD-10) Hospital Repository Active Unknown / UNK(Unknown) NA Active [address] Main [place] Repository Active Encounter for screening NA Active [place] [address] mammogram for malignant Clinic Main neoplasm of breast / [place] Z12.31(ICD-10) Repository PROCEDURES PROCEDURES No Procedure Records FoundRESULTS RESULTS LIPID PROFILE Collected: 09/13/2018 Status: F Source: [place] 10:05 AM [facility] REPOSITORY Order Comment: Order Date: 05/16/18 Order Info: [id number] - LIPID TYPE CODE TESTS RESULT OUT [...] VLDL 41 Performed By: #### L500.4100 #### [facility] [address] [place], [address] INJ/ASP MARI JT Observed: 08/03/2018 Status: F Source: [place]HEL[place] SHOULD/HIP/KNEE 8:30 AM [facility] REPOSITORY [facility] Imaging Services [address] [place] [address] Inj/Asp Mari Jt Should/Hip/Knee MR#: [id number] Acct: [id number] Name: ANT BRADLEYLila Tim Rep #: [id number] : 1950 F 67 From: Devon Orozco MD PCP: Maynor Black MD Status: REG CLI Study: Inj/Asp Mari Jt Should/Hip/Knee Date of Exam: 08/03/18 Exam# [id number] Ordering Dr: Anton Zimmerman MD PROCEDURE: Fluoroscopic [...] Devon Orozco MD at 9:47 EST Tel [phone], Service support , CC: Maynor Black MD; Anton Zimmerman MD Rn Ante Partum: Signed LOWER EXT ARTERIAL Observed: 07/31/2018 Status: F Source: [place] STUDY 10:07 PM [facility] REPOSITORY [facility] Cardiovascular Services [address] [place] [address] 07/31/18 2200 MR#: [id number] Acct: [id number] Name: ANT BRADLEYLila Tim Rep #: [id number] : 1950 67 From: Brad Holder MD [...] MD Date Dictated: 07/31/182199 Date Transcribed: 07/31/182199 Rn Ante Partum: SUZANNA Signed PROGRESS Observed: 06/13/2018 Status: COMPLETED Source: [place] 9:13 AM [facility] REPOSITORY O ID: [id number] Author: Dinora Nunez) [place] Service: (none) Author Type: Nurse Practitioner Type: [...] with trigger finger - ORAL SURGERY PROCEDURE [place] FAMILY HISTORY Problem Relation Age of Onset - Hypertension Mother - Heart Father ME - Breast Cancer Sister 64 brca negative - Heart Paternal Uncle ME - Cancer Paternal Uncle - Cancer Paternal [...] external genitalia normal, normal Bartholin's glands, urethra, [place]'s glands, no vulvar lesions, no cervical lesions, [...] MD CNOV Observed: 06/13/2018 Status: COMPLETED Source: [place] 9:00 AM [facility] REPOSITORY Office Visit (WOOB) SHELLI BRADLEY ([id number]) 1950 F Date Time Provider Department 06/13/18 [...] use: No. Last Pap: 2017 normal HPV: 2011 negative History of abnormal [...] with trigger finger - ORAL SURGERY PROCEDURE [place] FAMILY HISTORY Problem Relation Age of Onset - Hypertension Mother - Heart Father [place] - Breast Cancer Sister 64 brca negative - Heart Paternal Uncle [place] - Cancer Paternal Uncle - Cancer Paternal [...] external genitalia normal, normal Bartholin's glands, urethra, [place]'s glands, no vulvar lesions, no cervical lesions, [...] Evie Perez MD Referring Provider: EVIE PEREZ [[id number]] Allergies As of Date: 06/13/2018 Noted Allergy Reaction SEASONAL ALLERGIES 12/24/2014 14 - Other: See Comments Comments: Environmental Allergies-Sinus Issues Date Reviewed: 06/13/2018 Reviewed by: Dinora Nunez) Matias - Fully Assessed Reason for Visit: Yearly Exam [187] Primary Visit Diagnosis:Encounter for routine gynecologic examination in Medicare patient [Z01.419] Other Visit Diagnosis:Encounter for screening mammogram for breast cancer [Z12.31] Order(s):[facility] SCREENING [3424960] Order #: [id number] FUTURE Prescriptions as of 06/13/2018 Sig: VENTOLIN [...] 05/05/2018 Status: F Source: [place]HELLE 8:09 AM [facility] REPOSITORY Order Comment: Order Date: 03/15/18 Order [...] Performed By: #### L100.0100, L500.2500, L500.4100 #### [facility] [address] [place], [address] BASIC METABOLIC Collected: 05/05/2018 Status: F Source: [place] PROFILE (BMP) 8:09 AM [facility] REPOSITORY Order Comment: Order Date: 03/15/18 Order Info: [id number] - BMP Order Info: [id number] - LIPID TYPE CODE TESTS RESULT OUT [...] Performed By: #### L100.0100, L500.2500, L500.4100 #### [facility] [address] [place], [place], [address] LIPID PROFILE Collected: 05/05/2018 Status: F Source: [place] 8:09 AM [facility] REPOSITORY Order Comment: Order Date: 03/15/18 Order Info: [id number] - BMP Order Info: [id number] - LIPID TYPE CODE TESTS RESULT OUT [...] By: #### L100.0100, L500.2500, L500.4100 #### [facility] [address] [place], [address] PROGRESS Observed: 04/20/2018 Status: COMPLETED Source: [place] 9:04 AM [facility] REPOSITORY HNO ID: [id number] Author: Sweta Asencio Rdms Service: (none) Author [...] AM CNCO Observed: 04/20/2018 Status: COMPLETED Source: [place] 8:56 AM [facility] REPOSITORY HNO ID: [id number] Author: Mammography Coordinator Service: (none) Author Type: Physician Type: Letter Filed: 04/21/2018 11:31 PM Note Text: April 20, 2018 PID: [id number] Shelli TimDebby Kirk [address] [place] [address] Dear Ms. Bradley, We are pleased to [...] report will be kept on file at [facility] as part of your permanent medical record and are available for your continuing care. Thank you for allowing us to help in meeting your health care needs. Sincerely, Dr. Bustamante Interpreting Radiologist [facility] (Return to Annual Mammogram schedule) CNCO Observed: 04/20/2018 Status: COMPLETED Source: [place] 8:56 AM [facility] REPOSITORY HNO ID: [id number] Author: Mammography Coordinator Service: (none) Author Type: Physician Type: Letter Filed: 04/21/2018 11:31 PM Note Text: April 20, 2018 PID: [id number] Shelli Bradley [address] [place] [address] Dear Ms. Bradley, We are pleased to [...] report will be kept on file at [facility] as part of your permanent medical record and are available for your continuing care. Thank you for allowing us to help in meeting your health care needs. Sincerely, Dr. Bustamante Interpreting Radiologist [facility] (Return to Annual Mammogram schedule) [facility] InMobi BREAST LTD Observed: 04/20/2018 Status: F Source: [facility] 8:52 AM [facility] REPOSITORY * * *Final Report* * * DATE OF EXAM: Apr 20 2018 8:52AM [facility] 0593 - [facility] US BREAST LTD LT / PROCEDURE REASON: call back left breast / abnormal mammogram * * * * Physician Interpretation * * * * #[id number] - [facility] DIAGNOSTIC LT UNILATERAL LEFT DIGITAL DIAGNOSTIC MAMMOGRAM WITH CAD: 04/20/2018 HISTORY: Call Back Left Breast / Abnormal Mammogram. RESULT: TECHNIQUE: The study was acquired using full field digital technology and interpreted from soft copy. Current study was also evaluated with a Computer Aided Detection (CAD). Comparison is made to exams dated: 03/11/2018 mammogram, 03/04/2017 mammogram, 01/15/2016 mammogram, and 12/24/2014 mammogram - [facility]. The tissue of the left breast is predominantly fatty. Prior density is no longer seen in the left breast. No significant masses, calcifications, or other findings are seen in the breast. NEGATIVE There is no mammographic evidence of malignancy. #[id number] - [facility] US BREAST LTD LT ULTRASOUND OF LEFT BREAST: 04/20/2018 RESULT: Comparison is made to exams dated: 03/11/2018 mammogram, 03/04/2017 mammogram, 01/15/2016 mammogram, and 12/24/2014 mammogram - [facility]. Real-time ultrasound of the left breast was performed. A few normal appearing retroareolar ducts are seen. There are no masses otherwise. IMPRESSION: BENIGN FINDING There is no sonographic evidence of malignancy. Return to annual mammogram screening schedule is recommended. Maximiliano beltrán/daphnie:04/20/2018 08:56:33 Phlebotomy Specialist: Jammie OLEA (R)(Katty), [facility] letter sent: Return to Annual Mammogram BI-RADS: 1 Negative Ultrasound BI-RADS: 2 Benign finding Rn Ante Partum: Daphnie Transcribe Date/Time: Apr 20 2018 8:37A Dictated by : MAXIMILIANO BUSTAMANTE MD This examination was interpreted and the report reviewed and electronically signed by: MAXIMILIANO BUSTAMANTE MD on Apr 20 2018 8:56AM EST [id number] [facility] DIAGNOSTIC LT Observed: 04/20/2018 Status: F Source: [place] 8:37 AM [facility] REPOSITORY * * *Final Report* * * DATE OF EXAM: Apr 20 2018 8:37AM [facility] 0621 - [facility] DIAGNOSTIC LT / PROCEDURE REASON: call back left breast / abnormal mammogram * * * * Physician Interpretation * * * * RESULT: #[id number] - [facility] DIAGNOSTIC LT UNILATERAL LEFT DIGITAL DIAGNOSTIC MAMMOGRAM WITH CAD: 04/20/2018 HISTORY: Call Back Left Breast / Abnormal Mammogram. RESULT: TECHNIQUE: The study was acquired using full field digital technology and interpreted from soft copy. Current study was also evaluated with a Computer Aided Detection (CAD). Comparison is made to exams dated: 03/11/2018 mammogram, 03/04/2017 mammogram, 01/15/2016 mammogram, and 12/24/2014 mammogram - [facility]. The tissue of the left breast is predominantly fatty. Prior density is no longer seen in the left breast. No significant masses, calcifications, or other findings are seen in the breast. NEGATIVE There is no mammographic evidence of malignancy. #[id number] - [facility] US BREAST LTD LT ULTRASOUND OF LEFT BREAST: 04/20/2018 RESULT: Comparison is made to exams dated: 03/11/2018 mammogram, 03/04/2017 mammogram, 01/15/2016 mammogram, and 12/24/2014 mammogram - [facility]. Real-time ultrasound of the left breast was performed. A few normal appearing retroareolar ducts are seen. There are no masses otherwise. IMPRESSION: BENIGN FINDING There is no sonographic evidence of malignancy. Return to annual mammogram screening schedule is recommended. Maximiliano beltrán/daphnie:04/20/2018 08:56:33 Phlebotomy Specialist: Jammie COOPER (R)), [facility] letter sent: Return to Annual Mammogram BI-RADS: 1 Negative Ultrasound BI-RADS: 2 Benign finding Rn Ante Partum: Daphnie Transcribe Date/Time: Apr 20 2018 8:37A Dictated by: MAXIMILIANO BUSTAMANTE MD This examination was interpreted and the report reviewed and electronically signed by: MAXIMILIANO BUSTAMANTE MD on Apr 20 2018 8:56AM EST [id number] CNCO Observed: 03/11/2018 Status: COMPLETED Source: [place] 5:29 PM [facility] REPOSITORY [facility] ID: [id number] Author: Mammography Coordinator Service: (none) Author Type: Physician Type: Letter Filed: 03/14/2018 11:33 PM Note Text: March 11, 2018 PID: [id number] Shelli Bradley [address] [place] [address] Dear Ms. Bradley, Your recent breast imaging exam on 03/11/2018 showed a possible finding that requires additional imaging studies for a complete evaluation. Most such findings are probably benign (not cancer). Please call [phone] or [phone] to schedule an appointment for your additional imaging if you have not already done so. Your breast images and report will be kept on file here as part of your permanent medical record and are available for your continuing care. Thank you for allowing us to help in meeting your health care needs. Sincerely, Dr. Aragon Interpreting Radiologist [facility] (Additional imaging) PROCEDURE Observed: 03/11/2018 Status: COMPLETED Source: [place] 9:10 AM [facility] REPOSITORY HNO ID: [id number] Author: Nancy () Marcy Don Service: (none) Author Type: Printing Sign Machine Operator Type: Procedures Filed: 03/11/2018 9:10 AM Note Text: Radiology Service Progress Note PATIENT NAME: Shelli Bradley DATE OF SERVICE: March 11, 2018 TIME: 9:10 AM PATIENT IDENTITY VERIFICATION COMPLETED USING TWO (2) METHODS: Patient confirmed name verbally and Date of . PATIENT GENDER DATA: Female. status: : No status: NO. PATIENT RELEVANT IMPLANT DATA REVIEWED: Not Applicable RADIOLOGY DEPARTMENT: [facility] IV DATA: Not applicable SIGNED BY: RT Kleber March 11, 2018 9:[address] [facility] SCREENING Observed: 03/11/2018 Status: F Source: [place] 9:09 AM [facility] REPOSITORY * * *Final Report* * * DATE OF EXAM: Mar 11 2018 9:09AM [facility] 0581 - [facility] SCREENING / PROCEDURE REASON: Encounter for screening mammogram for malignant neoplasm of breast * * * * Physician Interpretation * * * * RESULT: #[id number] - [facility] SCREENING BILATERAL DIGITAL SCREENING MAMMOGRAM WITH CAD: 03/11/2018 HISTORY: /Screening Mammogram - patient reports NO symptoms. RESULT: TECHNIQUE: The study was acquired using full field digital technology and interpreted from soft copy. Current study was also evaluated with a Computer Aided Detection (CAD). Comparison is made to exams dated: 03/04/2017 mammogram, 01/15/2016 mammogram, 12/24/2014 mammogram, 11/28/2012 mammogram, and 11/04/2011 mammogram - [facility]. The tissue of both breasts is predominantly [...] was reviewed by a staff physician. Belgica Gauthier M.D. toño hinson/daphnie:03/11/2018 17:29:10 Phlebotomy Specialist: Nancy COOPER (R)), [facility] letter sent: Additional Imaging Needed Mammogram BI-RADS: 0 Incomplete: needs additional imaging evaluation If this report indicates you need additional imaging, and it has NOT yet been performed, please call , to schedule. We sincerely thank you for choosing the [facility] for your breast imaging needs. Rn Ante Partum: Daphnie Transcribe Date/Time: Mar 11 2018 9:09A Dictated by: EDWARD GAUTHIER MD This examination was interpreted and the report reviewed and electronically signed by: BELGICA ARAGON MD on Mar 11 2018 5:29PM EST [id number] ALLERGIES ALLERGIES DATE TYPE / CODE NAME / CODE REACTION SEVERITY SOURCE 12/24/2014 Environ/420 SEASONAL OTHER: SEE C [facility] 996752(SNOM ALLERGIES Main [place] ED CT) Repository 06/07/2013 Drug No Known Unknown [facility] Allergy/416 Allergies/R14606 [facility] 046256(SNOM 0388(RXNORM) Repository ED CT) ENCOUNTERS ENCOUNTERS ADMIT/DISCHARGE ACCOUNT ADMITTING ENCOUNTER LOCATION SOURCE NUMBER CLASS 09/13/2018 [id number] [facility] ing:MTLAB Repository 08/03/2018 [id number] [facility] ing:RAD Repository 07/25/2018 [id number] Ambulatory [facility] ing:CVS Repository 06/13/2018/06/14/20 [id number] Ambulatory [address] Repository 05/05/2018 [id number] [facility] ing:MFPLAB Repository 04/20/2018/04/20/20 [id number] Ambulatory [address] Repository 04/20/2018/04/20/20 [id number] Ambulatory [address] Repository 03/11/2018/03/11/[id number] Repository PAYERS PAYERS ENCOUNTER GUARANTOR PAYER SUBSCRIBER SOURCE 09/13/2018 SHELLI P Primary SHELLI P [place] [id number] Insurance:MEDICARE LINNICKDOB[facility] [id number] [place] Number: Repository [address]Xlh: 330 [id number] [phone] (HP) Date:2018-09-13 09/13/2018 Secondary SHELLI P Michelle Insurance:MMO LINNICKDOB: Community MEDICAREPolicy [id number] Hospital Number: Repository [id number] Date:0511-13-96[address] [address]XU: 09/13/2018 Tertiary NOT GIVENUNK [place] Insurance:SELF PAY [facility] Number: Effective Repository Date:2018-09-13 08/03/2018 SHELLI P Primary SHELLI P [place] [id number] Insurance:MEDICARE LINNICKDOB: [facility] PART A [facility] [id number] [place] Number: Repository [address]Wjk: 330 [id number] [phone] (HP) Date:2018-07-25 08/03/2018 Secondary SHELLI P [place] Insurance:AARPPolicy LINNICKDOB: Community Number: [id number] [id number] Repository Date:4989-21-98HR [address], [place] [address]HC: 08/03/2018 Tertiary NOT GIVENUNK Michelle Insurance:SELF PAY [facility] Number: Effective Repository Date:2018-07-25 07/25/2018 SHELLI P Primary SHELLI P [place] [id number] Insurance:MEDICARE LINNICKDOB: [facility] PART A [facility] [id number] [place] Number: Repository [address]Xrw: 330 [id number] [phone] (HP) Date:2018-07-20 07/25/2018 Secondary SHELLI P Michelle Insurance:AARPPolicy LINNICKDOB: Community Number: [id number] Hospital [id number] Repository Date:0770-35-22UA [facility] [place], [place] [address]DF: 07/25/2018 Tertiary NOT GIVENUNK [place] Insurance:SELF PAY [facility] Number: Effective Repository Date:2018-07-20 05/05/2018 Shelli P Primary Shelli P Michelle [id number] Insurance:MEDICARE LinnickDOB: [facility] [id number]: Repository [address]Vay: [phone] [id number] [phone] () Date:2018-05-05 05/05/2018 Secondary Shelli P Michelle Insurance:AARPPolicy LinnickDOB: Community Number: [id number] Hospital [id number] Repository Date:9119-60-12IS [facility] [address], [place] [address]ZI: 05/05/2018 Tertiary NOT GIVENUNK Michelle Insurance:SELF PAY [facility] Number: Effective Repository Date:2018-05-05
== END ==
LOC: LAB 09:59 → MTLAB 10:00
PROVIDERS: Family Provider Family Medicine; PCP Family Medicine; Referring Provider Family Medicine; Visit Provider Family Medicine
DX: E78.00 Pure hypercholesterolemia, unspecified (principal)
CPT/HCPCS: 36415; 80061

== ENCOUNTER → 2019-01-05 08:16 | Outpatient (CLI) | payer MEDICARE, OTHER, SELFPAY ==
--- NOTE | 2019-01-05 08:00 | RAD_ITS ---
PROCEDURE: Fluoroscopic guided left shoulder injection. DATE: January 05, 2019 INDICATION: Female, 68 years old. Left shoulder pain. PHYSICIAN: Devon Orozco M.D. MEDICATIONS: 12 mg about the metatarsal and 4 cc of 1% lidocaine. 2% lidocaine administered subcutaneously for local anesthesia. ACCESS SITE: Left shoulder. NEEDLE: 22-gauge spinal needle. FLUOROSCOPY TIME (if supplied): (0:55) minutes/seconds FINDINGS: The risks, benefits, and alternatives to the procedure were explained to the patient. The specific risks of bleeding, infection, and neurovascular injury were detailed and accepted. Witnessed informed consent was obtained. A 22-gauge spinal needle was positioned under radiographic fluoroscopic localization. Approximately 2 cc of Isovue-300 instilled for localization purposes. Medication was then injected. The patient tolerated the procedure well without any immediate complications. RAD/Inj/Asp James Jt Should/Hip/Knee IMPRESSION: 1. Successful fluoroscopic guided left shoulder injection.. Electronically Signed: Devon Orozco, at 9:19 EDT , Service support ,
== END ==
PROVIDERS: Family Provider Family Medicine; PCP Family Medicine; Referring Provider Specialist; Visit Provider Specialist
DX: M19.012 Primary osteoarthritis, left shoulder (principal)
CPT/HCPCS: 20610; 77002; Q9967; J0702

== ENCOUNTER → 2019-05-25 10:17 | Outpatient (CLI) | payer MEDICARE, OTHER, SELFPAY ==
[2019-05-25 12:26] LABS: Absolute Lymphocyte Count 1.47 X10^3/uL (0.83-4.51); Absolute Neutrophil Count 3.5 X10^3/uL (2.0-7.7); Basophil# 0.02 X10^3/uL; Basophil% 0.4 % (0-1); Eosinophil# 0.11 X10^3/uL; Hematocrit 37.9 % (37-47); Hemoglobin 12.1 g/dL (12.0-15.0); Lymphocyte # 1.47 X10^3/ul (4.0); Lymphocyte % 26.9 % (19-41); Mean Corp Hgb Conc 31.9 g/dL (32-36); Mean Corpuscular Hgb 27.7 pg (27.0-32.0); Mean Corpuscular Volume 86.7 fL (81-99); Mean Platelet Vol. 10.3 fl (6.2-12.0); Monocyte% 7.3 % (0-10); NRBC Flagged by Analyzer 0 % (0-5); Neutrophil # 3.45 X10^3/uL (2.7-7.7); Neutrophil % 63.2 % (47-70); Platelet Count 252 K/mm3 (150-450); RBC Distribution Width CV 13.2 % (11.6-14.6); RBC Distribution Width SD 41.5 fl (35.1-43.9); Red Blood Count 4.37 M/mm3 (4.2-5.4); White Blood Count 5.5 K/mm3 (4.4-11.0)
[2019-05-25 12:30] LABS: Anion Gap 8 (5-15); BUN 23 mg/dL (7-18); Calcium,Total 9.1 mg/dL (8.5-10.1); Chloride 109 mmol/L (98-107); Creatinine, Serum 0.92 mg/dL (0.55-1.02); EST Glomerular Filtration Rate 65 mL/min (>60); Est Glom Filt Rate - Afr Amer 78 mL/min (>60); Glucose 86 mg/dL (74-106); Potassium 4.4 mmol/L (3.5-5.1); Sodium Level 142 mmol/L (136-145)
== END ==
PROVIDERS: Family Provider Family Medicine; PCP Family Medicine; Referring Provider Family Medicine; Visit Provider Family Medicine
DX: Z01.818 Encounter for other preprocedural examination (principal)
CPT/HCPCS: 36415; 80048; 85025

== ENCOUNTER 2019-08-28 13:30 | Outpatient (RCR) | payer MEDICARE, OTHER, SELFPAY ==
--- NOTE | 2019-08-28 14:10 | HP.PTDCSUM ---
HP - PT D/C Summary It has been my pleasure to treat SCOTT BRADLEY under orders from SHIELA COVARRUBIAS, for the diagnosis of Left shoulder primary osteoarthritis for a total of 11 visit(s). Discharge Date: 08/28/19 Please see the following information for a summary of their discharge status. - Subjective Subjective: I see the dr tomorrow - Pain Right Shoulder Pain Intensity (Out of 10): 0 - Overall Improvement % Improvement: 85 - Objective Objective/Function: L . R 30. need to improve ext rot rations on left - Goals Goal 1:: Understand the healing process and doctors limitations Goal Progress: Progressing Goal 2:: Improve ROM by 10% Goal Progress: Goal Met Goal 3:: Progress through each Phase of protocol. Goal Progress: Goal Met - Plan Plan: discharge to [facility] - D/C Information Discharge Comments: Progressed nicely will develop H&Wprogram for her to follow. If there are questions or concerns regarding this patient's physical therapy, please feel free to call me at [phone]. Thank you for the referral of this patient. Sincerely, Ministerio Valdivia, PT, MARY, SCS, CSCS
== END 2019-08-28 19:00 | disposition home or self-care (01) ==
LOC: PT 13:30
PROVIDERS: Family Provider Family Medicine; PCP Family Medicine
DX: M19.012 Primary osteoarthritis, left shoulder (principal)
CPT/HCPCS: 97014; 97110; 97140; 97162; G0283

== ENCOUNTER → 2020-04-18 09:49 | Outpatient (CLI) | payer MEDICARE, OTHER, SELFPAY ==
[2020-04-18 13:00] LABS: ALB/GLOB Ratio 1.1 RATIO (0.9-2.4); AST(SGOT) 17 U/L (15-37); Alanine Aminotransfer ALT/SGPT 26 U/L (13-56); Albumin, Serum 3.7 g/dL (3.2-5.0); Alkaline Phosphatase 75 U/L (45-117); Anion Gap 6 (5-15); BUN 15 mg/dL (7-18); BUN/Creat Ratio 19.8 RATIO (10-20); Chloride 106 mmol/L (98-107); Cholesterol 265 mg/dL (200); Creatinine, Serum 0.76 mg/dL (0.55-1.02); EST Glomerular Filtration Rate 81 mL/min (>60); Est Glom Filt Rate - Afr Amer 98 mL/min (>60); Globulin 3.3 g/dL (2.2-4.2); Glucose 88 mg/dL (74-106); High Density Lipoprotein 39 mg/dL; Sodium Level 139 mmol/L (136-145); Triglycerides 382 mg/dL; Very Low Density Lipoprotein 76 mg/dL (5-40)
== END ==
PROVIDERS: PCP Family Medicine; Referring Provider Family Medicine; Visit Provider Family Medicine
DX: I10 Essential (primary) hypertension (principal); E78.00 Pure hypercholesterolemia, unspecified
CPT/HCPCS: 36415; 80053; 80061

== ENCOUNTER → 2020-10-30 08:40 | Outpatient (CLI) | payer MEDICARE, OTHER, SELFPAY ==
[2020-10-30 10:44] LABS: ALB/GLOB Ratio 1.2 RATIO (0.9-2.4); AST(SGOT) 27 U/L (15-37); Alanine Aminotransfer ALT/SGPT 42 U/L (13-56); Alkaline Phosphatase 61 U/L (45-117); Anion Gap 6 (5-15); BUN 15 mg/dL (7-18); BUN/Creat Ratio 14.2 RATIO (10-20); Calcium,Total 8.9 mg/dL (8.5-10.1); Chloride 104 mmol/L (98-107); Cholesterol 215 mg/dL (200); Creatinine, Serum 1.06 mg/dL (0.55-1.02); EST Glomerular Filtration Rate 55 mL/min (>60); Est Glom Filt Rate - Afr Amer 66 mL/min (>60); Globulin 3.3 g/dL (2.2-4.2); Glucose 103 mg/dL (74-106); High Density Lipoprotein 52 mg/dL; Potassium 3.9 mmol/L (3.5-5.1); Protein, Total 7.3 g/dL (6.4-8.2); Sodium Level 138 mmol/L (136-145); Triglycerides 160 mg/dL; Very Low Density Lipoprotein 32 mg/dL (5-40)
== END ==
PROVIDERS: PCP Family Medicine; Referring Provider Family Medicine; Visit Provider Family Medicine
DX: E78.00 Pure hypercholesterolemia, unspecified (principal)
CPT/HCPCS: 36415; 80053; 80061

== ENCOUNTER → 2021-05-08 08:32 | Outpatient (CLI) | payer MEDICARE, OTHER, SELFPAY ==
[2021-05-08 10:18] LABS: Absolute Lymphocyte Count 1.63 X10^3/uL (0.83-4.51); Absolute Neutrophil Count 3.1 X10^3/uL (2.0-7.7); Basophil# 0.01 X10^3/uL; Basophil% 0.2 % (0-1); Eosinophil# 0.13 X10^3/uL; Eosinophils% 2.5 % (0-5); Hematocrit 37.9 % (37-47); Hemoglobin 12.3 g/dL (12.0-15.0); Lymphocyte # 1.63 X10^3/ul (0.83-4.51); Lymphocyte % 31.6 % (19-41); Mean Corp Hgb Conc 32.5 g/dL (32-36); Mean Corpuscular Hgb 28.1 pg (27.0-32.0); Mean Corpuscular Volume 86.5 fL (81-99); Mean Platelet Vol. 10.3 fl (6.2-12.0); Monocyte# 0.31 X10^3/uL; NRBC Flagged by Analyzer 0 % (0-5); Neutrophil # 3.07 X10^3/uL (2.7-7.7); Neutrophil % 59.5 % (47-70); Platelet Count 288 K/mm3 (150-450); RBC Distribution Width CV 13.2 % (11.6-14.6); RBC Distribution Width SD 41.6 fl (35.1-43.9); Red Blood Count 4.38 M/mm3 (4.2-5.4); White Blood Count 5.2 K/mm3 (4.4-11.0)
[2021-05-08 10:57] LABS: AST(SGOT) 15 U/L (15-37); Alanine Aminotransfer ALT/SGPT 29 U/L (13-56); Albumin, Serum 3.8 g/dL (3.2-5.0); Alkaline Phosphatase 55 U/L (45-117); Anion Gap 4 (5-15); BUN 28 mg/dL (7-18); BUN/Creat Ratio 24.3 RATIO (10-20); Calcium,Total 9.4 mg/dL (8.5-10.1); Chloride 106 mmol/L (98-107); Cholesterol 224 mg/dL (200); Creatinine, Serum 1.15 mg/dL (0.55-1.02); EST Glomerular Filtration Rate 50 mL/min (>60); Est Glom Filt Rate - Afr Amer 60 mL/min (>60); Globulin 3.7 g/dL (2.2-4.2); Glucose 86 mg/dL (74-106); High Density Lipoprotein 48 mg/dL; Potassium 4.4 mmol/L (3.5-5.1); Protein, Total 7.5 g/dL (6.4-8.2); Sodium Level 139 mmol/L (136-145); Triglycerides 200 mg/dL; Very Low Density Lipoprotein 40 mg/dL (5-40)
== END ==
PROVIDERS: PCP Family Medicine; Referring Provider Family Medicine; Visit Provider Family Medicine
DX: E78.00 Pure hypercholesterolemia, unspecified (principal)
CPT/HCPCS: 36415; 80053; 80061; 85025

== ENCOUNTER 2021-06-09 11:30 | Outpatient (RCR) | payer MEDICARE, OTHER, SELFPAY ==
--- NOTE | 2021-05-12 12:03 | HP.PTEVAL ---
Patient's Visit Information SCOTT BRADLEY is a 70 year old F referred to Physical Therapy by Dr. Maynor Ramos MD with a diagnosis of vertigo. Date of Evaluation: 05/12/21 Physical Therapist: OLGA Harry - Visit Plan Frequency: 1-2x /Week Duration: 3 Weeks Plan: 1-2X/ week for 3 weeks for repositioning of crystals - Subjective Pt reports that she has had issues with this over the years. It has been on and off. She has it again now and by the time she went to the ENT and did not have the room spinning with the manuver. It is not right. She is able to function but it is worse when looking up and when she sits in the recliner at night and goes from reclined to sitting and she has to sit a minute. Watering plants with arm overhead caused it too. She has not done the senior fitness classes due to the dizziness and her schedule. Dr suggested doing PT. She is not sleeping on the L side at all because it makes it worse and describes it as the room spins when rolls to the L side and spins for seconds and then settles. Rolling to her R side is fine. Dr said to sleep at 45 degree angle. - Objective + Roll test to the L for horizontal nystagmus. -Roll test to the R. -B Hallpike. Did the BBQ roll to the L... Then L Hallpike became positive for torsional nystagmus lasting 20 seconds and treated with the L EPLY.... Pt felt off walking out of the clinic - Balance/Special Test Scores Dizziness Score: 20 - Goals Goal 1:: I HEP Goal Time Frame: 4-6 Weeks Goal 2:: Be able to roll to the L side at night with out having dizziness Goal Time Frame: 4-6 Weeks Goal 3:: Be able to look up towards the ceiling without having dizziness Goal Time Frame: 4-6 Weeks - Rehabilitation Potential Rehabilitation Potential: Good - Anticipated Interventions Patient/Client Instruction: Educate patient on: Condition, Plan of Care For the Purpose of:: To improve nutrient delivery to tissue, To increase oxygenation perfusion, To improve muscle performance and motor function, To improve ability to perform ADL's, To increase tolerance to activity/condition/position, To decrease level of supervision to perform tasks, To improve ability of physical actions for home/community/work/leisure, To improve gait and locomotor functions Therapeutic Exercise to Include: Strength training, Balance training, Passive ROM, Active ROM For the Purpose of:: To improve muscle performance and motor function, To improve ability to perform ADL's, To increase tolerance to activity/condition/position, To improve performance and independence with ADL's, To decrease level of supervision to perform tasks, To improve gait and locomotor functions, To improve health of tissue, To improve balance, To improve safety with gait Manual Therapy Techniques to Include: Passive ROM, Other For the Purpose of:: To improve gait and locomotor functions, To improve balance, To improve safety with gait Thank you for the opportunity to evaluate your patient. For Medicare and Medicare HMO plans, please review the plan of care and approve it. It will need to be FAXED BACK to us at [phone] for Medicare purposes. For Medicare only, by signing this I certify the plan of care. Please let me know if there are questions or concerns regarding this plan of care. Physician Signature: Date:
--- NOTE | 2021-06-09 11:55 | HP.PTDCSUM ---
It has been my pleasure to treat SCOTT BRADLEY referred by Dr. Maynor Ramos MD, with the diagnosis of vertigo for a total of 5 visit(s). Discharge Date: 06/09/21 Please see the following information for a summary of their discharge status. Subjective: Pt reports that she is doing well but every now and then she will get a quick feeling like it will come back on and it doesn't. She is still doing her Gandara Daroff and AROM neck ext ROM exercises. She feels that she is ready to continue on her own and leg her Dr know if her symptoms return % Improvement: 95 Objective/Function: R Hallpike was negative for nystagmus but slight dizziness and then did the R Eply. Repeated R Hallpike and did not feel it Goal 1:: I HEP Goal 2:: Be able to roll to the L side at night with out having dizziness Goal Progress: Progressing Goal 3:: Be able to look up towards the ceiling without having dizziness Goal Progress: Progressing Plan: Dc PT to HEP of standing neck ext Discharge Comments: DC PT to HEP If there are questions or concerns regarding this patient's physical therapy, please feel free to call me at [phone]. Thank you for the referral of this patient. Sincerely, Teresa Russo, MPT Balance/Gait/Functional tests - Balance/Special Test Scores Dizziness Score: 10
== END 2021-06-09 19:00 | disposition home or self-care (01) ==
LOC: PT 11:30
PROVIDERS: PCP Family Medicine; Referring Provider Family Medicine; Visit Provider Family Medicine
DX: R42 Dizziness and giddiness (principal)
CPT/HCPCS: 97161; 97530

== ENCOUNTER 2021-11-06 11:30 | Outpatient (RCR) | payer MEDICARE, OTHER, SELFPAY ==
--- NOTE | 2021-09-10 14:41 | HP.PTEVAL_ITS ---
Patient's Visit Information SCOTT BRADLEY is a 71 year old F referred to Physical Therapy by Dr. Robert Maravilla MD with a diagnosis of Vertigo. Date of Evaluation: 09/10/21 Physical Therapist: Wagner Aguilar DPT, OCS, CSCS - Visit Plan Frequency: 1-2x /Week Duration: 2-4 Weeks Plan: 1-2x/week as needed for positional treatments and vestibular ex as needed. Will f/u tomorrow and wednesday this week as needed due to trip to [place] scheduled next week. - Subjective Dizzy again. was dizzy with positional back in June. It cleared with treatment. Recently it came back about 3 weeks ago moving head in pool casued spinning which lasted a few minutes. Tried BD ex then and she felt dizzy on and off. Nauseous at times. Just travelled again and got it in morning upon waking. Good day yesterday but today is not great. Going to [place] Wednesday. having TKA sometime soon. Sleeping OK. Has to move slowlya t home. Avoiding sleeping on left side. Does ex in senior fitness and was not having trouble but avoided since this started up again. Balance is good, nausea is more the problem. - Objective Walks normal and trasers chair and bed I. cervical aROM WNL and without pain, hesitant to look up. UE aROM WNL and strength at 4-/5. - R hallpike tia. + L hallpike up torsional nystagmus 8 seconds. Treated with Josep then no nystagmus with HD. - Balance/Special Test Scores Dizziness Score: 36 - Goals Goal 1:: abolish nausea dizzy feeling Goal Time Frame: 2-4 Weeks Goal 2:: Pt feel 100% better and able to move without hesitation Goal Time Frame: 2-4 Weeks Goal 3:: perfect DHI score Goal Time Frame: 2-4 Weeks Goal 4:: Pt able to make trip to [place] next week Goal Time Frame: 1 Week - Rehabilitation Potential Physical Therapy Diagnosis: BPPV L post canalithiasis Rehabilitation Potential: Good - Anticipated Interventions Patient/Client Instruction: Educate patient on: Condition, Plan of Care For the Purpose of:: To increase tolerance to activity/condition/position Comment: psoitional and vestibular ex For the Purpose of:: To increase tolerance to activity/condition/position Thank you for the opportunity to evaluate your patient. For Medicare and Medicare HMO plans, please review the plan of care and approve it. It will need to be FAXED BACK to us at [phone] for Medicare purposes. For Medicare only, by signing this I certify the plan of care. Please let me know if there are questions or concerns regarding this plan of care. Physician Signature: Date:_
--- NOTE | 2021-10-30 13:45 | HP.PTREVAL_ITS ---
Dr. Robert Maravilla MD, It has been my pleasure to treat SCOTT BRADLEY over the last 3 visits for Vertigo. Please see the progress note below for an update on the physical therapy plan of care! Subjective: Looked up shortly after cancelled last visit and got dizzy again. it recurred a few times. She went to doctor and has vertigo returned. Nurse practioner at Dr. Abreu office wants her to continue PT. Gave her a script. Currently not feeling normal anymore, has not done exercise. Looking up trigger her dizzyness for short duration. Balance is oK unless she looks. Objective/Function: - R Hallpike tia. + L hallpike tia for delayed onset up torsional nystagmus of 8 seconds. - Hakllpike tia after treatement of keisha. Balance is good walking in and I in gait. Plan Plan: weekly as needed x 2-4 to continue plan of care since her symptoms returned, pt has new script and will bring it next time. treat with education on management, positional treatments and exercises. Fair prognosis and same goals. Balance/Gait/Functional tests - Balance/Special Test Scores Dizziness Score: 36 Goals Goal 1:: abolish nausea dizzy feeling Goal Time Frame: 2-4 Weeks Goal Progress: appropriate again. Goal 2:: Pt feel 100% better and able to move without hesitation Goal Time Frame: 2-4 Weeks Goal Progress: appropriate again Goal 3:: perfect DHI score Goal Time Frame: 2-4 Weeks Goal Progress: appropriate again Goal 4:: Pt able to make trip to [place] next week Goal Time Frame: 1 Week Goal Progress: Goal Met Anticipated Interventions Patient/Client Instruction: Educate patient on: Condition, Plan of Care For the Purpose of:: To increase tolerance to activity/condition/position Comment: psoitional and vestibular ex For the Purpose of:: To increase tolerance to activity/condition/position Please do not hesitate to contact me at [phone] by phone or if you have questions or concerns regarding this new plan of care! Sincerely, Wagner Aguilar, DPT, OCS, CSCS
--- NOTE | 2021-12-26 08:26 | HP.PT.NRP ---
SCOTT BRADLEY was seen in my office for initial evaluation on 09/10/21. The following Plan of Care was established for this patient: Initial Frequency: 1-2x /Week Initial Duration: 2-4 Weeks Patient/Client Instruction: Educate patient on: Condition, Plan of Care For the Purpose of:: To increase tolerance to activity/condition/position For the Purpose of:: To increase tolerance to activity/condition/position This patient was last seen in our office 11/06/21. Pertinent comments regarding their Physical therapy will appear below: Pt seen 4 visits of vertigo treatment and was 100% better at last session. Plan was to d/c 12/07 if she did not need to call to return. i will d/c at this time. At this point I will be discontinuing this patient from physical therapy. I would be happy to see this patient again in the future if found appropriate by the physician. Thank you! Wagner Aguilar, DPT, OCS, CSCS Balance/Gait/Functional tests - Balance/Special Test Scores Dizziness Score: 0
== END 2021-11-06 19:00 | disposition home or self-care (01) ==
LOC: PT 11:30
PROVIDERS: PCP Family Medicine; Referring Provider Family Medicine; Visit Provider Family Medicine
DX: R42 Dizziness and giddiness (principal)
CPT/HCPCS: 97161; 97164; 97530

== ENCOUNTER 2021-11-14 09:12 | Outpatient (CLI) | payer MEDICARE, OTHER, SELFPAY ==
[2021-11-14 10:28] LABS: Absolute Lymphocyte Count 1.54 X10^3/uL (0.83-4.51); Basophil# 0.01 X10^3/uL; Basophil% 0.3 % (0-1); Eosinophil# 0.05 X10^3/uL; Eosinophils% 1.3 % (0-5); Hematocrit 37.5 % (37-47); Hemoglobin 12.6 g/dL (12.0-15.0); Lymphocyte # 1.54 X10^3/ul (0.83-4.51); Lymphocyte % 39.6 % (19-41); Mean Corp Hgb Conc 33.6 g/dL (32-36); Mean Corpuscular Hgb 28.7 pg (27.0-32.0); Mean Corpuscular Volume 85.4 fL (81-99); Mean Platelet Vol. 10.4 fl (6.2-12.0); Monocyte# 0.25 X10^3/uL; Monocyte% 6.4 % (0-10); NRBC Flagged by Analyzer 0 % (0-5); Neutrophil # 2.04 X10^3/uL (2.7-7.7); Neutrophil % 52.4 % (47-70); Platelet Count 269 K/mm3 (150-450); RBC Distribution Width CV 13.3 % (11.6-14.6); RBC Distribution Width SD 41.4 fl (35.1-43.9); Red Blood Count 4.39 M/mm3 (4.2-5.4); White Blood Count 3.9 K/mm3 (4.4-11.0)
[2021-11-14 10:31] LABS: Erythrocyte Sedimentation Rate 9 mm/hr (0-30)
[2021-11-14 10:47] LABS: Hemoglobin A1c 5.4 % (3.8-5.6)
[2021-11-14 10:56] LABS: Microalbumin:Creatinine Ratio 8.4 mg/g CRE (<30 mg/g CRE)
[2021-11-14 10:57] LABS: PTHIN 53.8 pg/mL (18.4-80.1)
[2021-11-14 11:02] LABS: ALB/GLOB Ratio 1.1 RATIO (0.9-2.4); AST(SGOT) 15 U/L (15-37); Alanine Aminotransfer ALT/SGPT 27 U/L (13-56); Albumin, Serum 3.7 g/dL (3.2-5.0); Alkaline Phosphatase 71 U/L (45-117); Anion Gap 5 (5-15); BUN 18 mg/dL (7-18); BUN/Creat Ratio 24.1 RATIO (10-20); Calcium,Total 8.8 mg/dL (8.5-10.1); Chloride 106 mmol/L (98-107); Cholesterol 229 mg/dL (200); Creatinine, Serum 0.75 mg/dL (0.55-1.02); EST Glomerular Filtration Rate 82 mL/min (>60); Est Glom Filt Rate - Afr Amer 99 mL/min (>60); Globulin 3.5 g/dL (2.2-4.2); Glucose 84 mg/dL (74-106); High Density Lipoprotein 41 mg/dL; Potassium 3.6 mmol/L (3.5-5.1); Protein, Total 7.2 g/dL (6.4-8.2); Sodium Level 140 mmol/L (136-145); Triglycerides 239 mg/dL; Very Low Density Lipoprotein 48 mg/dL (5-40)
[2021-11-14 11:04] LABS: Vitamin D,25 Hydroxy 33.6 ng/mL
[2021-11-17 17:08] LABS: Cytoplasmic Ab (C-ANCA) <1:20 titer (Neg:<1:20); Immunoglobulin A 209 mg/dL (87-352); Immunoglobulin G 773 mg/dL (586-1602); Immunoglobulin M 61 mg/dL (26-217)
[2021-11-17 21:09] LABS: Perinuclear Ab (P-ANCA) <1:20 titer (Neg:<1:20)
[2021-11-20 19:07] LABS: Beef <0.10 kU/L (Class 0); Chocolate <0.10 kU/L (Class 0); Corn <0.10 kU/L (Class 0); Egg, Whole <0.10 kU/L (Class 0); Milk (Cow) <0.10 kU/L (Class 0); Peanut <0.10 kU/L (Class 0); Pork <0.10 kU/L (Class 0); Soybean <0.10 kU/L (Class 0); Wheat <0.10 kU/L (Class 0)
[2021-11-20 19:17] LABS: ANTINUCLEAR ANTIBODIES DIRECT Negative (Negative)
== END 2021-11-14 23:59 | disposition home or self-care (01) ==
LOC: MFPLAB 09:19
PROVIDERS: PCP Family Medicine; Referring Provider Family Medicine; Visit Provider Family Medicine
DX: I12.9 Hypertensive chronic kidney disease with stage 1 through stage 4 chronic kidney disease, or unspecified chronic kidney disease (principal); R53.83 Other fatigue; N18.2 Chronic kidney disease, stage 2 (mild); J34.89 Other specified disorders of nose and nasal sinuses; R19.7 Diarrhea, unspecified; M79.10 Myalgia, unspecified site
CPT/HCPCS: 36415; 80053; 80061; 82043; 82306; 82570; 82784; 83036; 83970; 84443; 85025; 85652; 86003; 86005; 86038; 86225; 86235; 86256

== ENCOUNTER 2022-04-16 09:30 | Outpatient (RCR) | payer MEDICARE, OTHER, SELFPAY ==
--- NOTE | 2022-01-14 09:21 | HP.PTEVAL_ITS ---
Patient's Visit Information SCOTT BRADLEY is a 71 year old F referred to Physical Therapy by SARAHI AMIN with a diagnosis of primary OA B knees. Date of Evaluation: 01/14/22 Physical Therapist: Wagner Aguilar, DPT, OCS, CSCS - Visit Plan Frequency: 2x /Week Duration: 4-6 Weeks Plan: 2x/week for 4-6 weeks for starting asquatic ex for quad and gastroc stretches and hip and knee strength with core and progress to I program. may want land treatment once I in water. - Subjective i HAVE BONE ON BONE IN both knees. got x rays to show it. Got injection and sent for therapy as she is not ready for TKA yet. Wants to build up muscles. L knee starting to bulge in. Had constant ache prior to injection in both knees. Steps were really hard and had to go down sideways and did not trust them. Walking downhill was hard. Ache was 7/10, was mostly comfortable at rest. Now after injection feels pretty good. That was last week. Has r heel pain also. Wears orthotics. Not employed, sleeping well. Walks for fitness and had to back off, avoiding [employer] due to knee pain. Has an old bike at home but has not done so in a while. - Pain B knees Pain Intensity (Out of 10): 0 Pain Intensity Range: 0, 7 - Objective Walks I with L valgus and avoidance of extension. Steps reciprocal but uses L especially to come down due to pain! B knee AROM 0-115, 0 ext lag with SLR. B pes planus L >R is defintiely a factor. Tenderness lateral joint line L knee. Pain to push past 115 AROM. reflexes 2/3 patella and achilles. Sensation LE WNL to gross light touch. Strength knees 4/5, hip abd and ext 3+, flexion 4/5 and ankles 4/5. Tightness obvious in B quads and gastroc. - Balance/Special Test Scores Lower Extremity Functional Score: 53 - Goals Goal 1:: I appropriate HEP for management of condition pool and land. Goal Time Frame: 4-6 Weeks Goal 2:: Pain maintain 0-1/10 at all times. Goal Time Frame: 4-6 Weeks Goal 3:: LEFS score 60/80 Goal Time Frame: 4-6 Weeks - Rehabilitation Potential Physical Therapy Diagnosis: OA knees Rehabilitation Potential: Good - Anticipated Interventions Patient/Client Instruction: Educate patient on: Condition, Plan of Care For the Purpose of:: To decrease pain, To increase ROM, To increase tolerance to activity/condition/position Therapeutic Exercise to Include: Strength training, Flexibilty training, In an aquatic setting For the Purpose of:: To decrease pain, To increase ROM, To improve muscle performance and motor function, To increase tolerance to activity/condition/position Manual Therapy Techniques to Include: Soft tissue mobilization For the Purpose of:: To increase ROM Thank you for the opportunity to evaluate your patient. For Medicare and Medicare HMO plans, please review the plan of care and approve it. It will need to be FAXED BACK to us at [phone] for Medicare purposes. For Medicare only, by signing this I certify the plan of care. Please let me know if there are questions or concerns regarding this plan of care. Physician Signature: Date:
--- NOTE | 2022-03-09 10:27 | HP.PTREVAL_ITS ---
CHARY LOPEZ, LORI-C, It has been my pleasure to treat SCOTT BRADLEY over the last 13 visits for primary OA B knees. Please see the progress note below for an update on the physical therapy plan of care! Subjective: Rupal is fabulous. Knees love the water. Not much knee pain lately, only to 1/10. Cortisone still working. Wants to learn land exercises. May or may not continue in the pool. Only pain right now is descending steps or decline and can get to 2/10 transient. Will need surgery at some point but wants to put it off. Nothing scheduled. Objective/Function: 0-120 AROM without pain. Steps reciprocal without rail up and needingf railing descending. Strength is 4/5 flexiona nd extension without pain today. Overall doiing well but has no idea what machines to do in gym nad wishes to learn. Plan Plan: 2x/week for 2 weeks once we get a new script for teaching gym based LE and core strength and working to I with list. Note faxed to doctor requesting new script and [employer] desk to contact patient once received. Balance/Gait/Functional tests - Balance/Special Test Scores Lower Extremity Functional Score: 57 Goals Goal 1:: I appropriate HEP for management of condition pool and land. Goal Time Frame: 4-6 Weeks Goal Progress: pool, needs land. Goal 2:: Pain maintain 0-1/10 at all times. Goal Time Frame: 4-6 Weeks Goal Progress: Goal Met Goal 3:: LEFS score 60/80 Goal Time Frame: 4-6 Weeks Goal Progress: Progressing Goal 4:: I gym based ex for management of knee OA in gym wiht list and confience doing them on her own. Goal Time Frame: 2-4 Weeks Goal Progress: NEW GOAL Anticipated Interventions Patient/Client Instruction: Educate patient on: Condition, Plan of Care For the Purpose of:: To decrease pain, To increase ROM, To increase tolerance to activity/condition/position Therapeutic Exercise to Include: Strength training, Flexibilty training, In an aquatic setting For the Purpose of:: To decrease pain, To increase ROM, To improve muscle performance and motor function, To increase tolerance to activity/condition/position Manual Therapy Techniques to Include: Soft tissue mobilization For the Purpose of:: To increase ROM Please do not hesitate to contact me at [phone] by phone or if you have questions or concerns regarding this new plan of care! Sincerely, Wagner Aguilar, DPT, OCS, CSCS
--- NOTE | 2022-04-16 10:16 | HP.PTDCSUM ---
It has been my pleasure to treat SCOTT BRADLEY referred by CHARY LOPEZ, LORI-Harshil, with the diagnosis of primary OA B knees for a total of 17 visit(s). Discharge Date: 04/16/22 Please see the following information for a summary of their discharge status. Subjective: I learned alot of exercises. Feels comfortable on the machines and can adjust them herself. Got out of pool one day on vacation and felt it in R leg. Did pool exercises while gone. Knees are better and not constant but the injections are waning. Soreness 1/10 this week at worst and more noticeable lifting leg to put on clothes. Not returning to doctor. Needs replacement. B knees Pain Intensity (Out of 10): 0 Lumbar Spine Pain Intensity (Out of 10): 0 % Improvement: 90 Objective/Function: 0-120 aROM B knees without pain today. Steps reciprocally up without rail and descending reciprocally requiring rail and some discomfort R knee. Walks without antalgia today. overall doing well adn ready to cotninue in gym on her own with written instructions. Goal 1:: I appropriate HEP for management of condition pool and land. Goal Progress: Goal Met Goal 2:: Pain maintain 0-1/10 at all times. Goal Progress: Goal Met Goal 3:: LEFS score 60/80 Goal Progress: Progressing Goal 4:: I gym based ex for management of knee OA in gym wiht list and confience doing them on her own. Goal Progress: Goal Met Plan: d/c If there are questions or concerns regarding this patient's physical therapy, please feel free to call me at [phone]. Thank you for the referral of this patient. Sincerely, Wagner Aguilar, DPT, OCS, CSCS Balance/Gait/Functional tests - Balance/Special Test Scores Lower Extremity Functional Score: 48
== END 2022-04-16 10:52 | disposition home or self-care (01) ==
LOC: PT 09:30
PROVIDERS: PCP Family Medicine; Referring Provider Nurse Practitioner Family; Visit Provider Nurse Practitioner Family
DX: M17.0 Bilateral primary osteoarthritis of knee (principal)
CPT/HCPCS: 97110; 97113; 97162; 97164

== ENCOUNTER → 2022-06-05 | Outpatient (CLI) | payer MEDICARE, OTHER, SELFPAY ==
[2022-06-05 10:03] LABS: Erythrocyte Sedimentation Rate 4 mm/hr (0-30)
[2022-06-05 10:05] LABS: Absolute Lymphocyte Count 2.52 X10^3/uL (0.83-4.51); Absolute Neutrophil Count 4.9 X10^3/uL (2.0-7.7); Basophil# 0.01 X10^3/uL; Basophil% 0.1 % (0-1); Eosinophil# 0.19 X10^3/uL; Eosinophils% 2.3 % (0-5); Hematocrit 42.8 % (37-47); Hemoglobin 13.7 g/dL (12.0-15.0); Lymphocyte # 2.52 X10^3/ul (0.83-4.51); Lymphocyte % 30.7 % (19-41); Mean Corpuscular Hgb 27.7 pg (27.0-32.0); Mean Corpuscular Volume 86.6 fL (81-99); Mean Platelet Vol. 9.7 fl (6.2-12.0); Monocyte# 0.61 X10^3/uL; Monocyte% 7.4 % (0-10); NRBC Flagged by Analyzer 0 % (0-5); Neutrophil # 4.86 X10^3/uL (2.7-7.7); Neutrophil % 59.1 % (47-70); Platelet Count 340 K/mm3 (150-450); RBC Distribution Width CV 13.7 % (11.6-14.6); RBC Distribution Width SD 43.4 fl (35.1-43.9); Red Blood Count 4.94 M/mm3 (4.2-5.4); White Blood Count 8.2 K/mm3 (4.4-11.0)
[2022-06-05 10:37] LABS: PTHIN 108.7 pg/mL (18.4-80.1)
[2022-06-05 10:41] LABS: Vitamin D,25 Hydroxy 30.5 ng/mL
[2022-06-05 10:53] LABS: AST(SGOT) 11 U/L (15-37); Alanine Aminotransfer ALT/SGPT 31 U/L (13-56); Albumin, Serum 3.6 g/dL (3.2-5.0); Alkaline Phosphatase 65 U/L (45-117); Anion Gap 7 (5-15); BUN 17 mg/dL (7-18); BUN/Creat Ratio 22.6 RATIO (10-20); CPK Total, Creatine Kinase 80 U/L (26-192); CRP 6.59 mg/L (0.0-3.0); Calcium,Total 8.9 mg/dL (8.5-10.1); Chloride 104 mmol/L (98-107); Cholesterol 221 mg/dL (200); Creatinine, Serum 0.75 mg/dL (0.55-1.02); EST Glomerular Filtration Rate 81 mL/min (>60); Est Glom Filt Rate - Afr Amer 98 mL/min (>60); Globulin 3.5 g/dL (2.2-4.2); Glucose 86 mg/dL (74-106); High Density Lipoprotein 48 mg/dL; Magnesium 2.1 mg/dL (1.6-2.6); Potassium 4.3 mmol/L (3.5-5.1); Protein, Total 7.1 g/dL (6.4-8.2); Sodium Level 139 mmol/L (136-145); Thyroid Stim Hormone (TSH) 1.77 uIU/mL (0.358-3.74); Triglycerides 220 mg/dL; Very Low Density Lipoprotein 44 mg/dL (5-40)
[2022-06-08 16:09] LABS: PROEL- A/G Ratio 1.4 (0.7-1.7); PROEL- Albumin 3.9 g/dL (2.9-4.4); PROEL- Alpha-1 Globulin 0.2 g/dL (0.0-0.4); PROEL- Alpha-2 Globulin 0.8 g/dL (0.4-1.0); PROEL- Beta Globulin 1.1 g/dL (0.7-1.3); PROEL- Gamma Globulin 0.7 g/dL (0.4-1.8); PROEL- Globulin, Total 2.8 g/dL (2.2-3.9); PROEL- TOTAL PROTEIN 6.7 g/dL (6.0-8.5)
== END | disposition home or self-care (01) ==
LOC: MFPLAB 09:10
PROVIDERS: PCP Family Medicine; Referring Provider Family Medicine; Visit Provider Family Medicine
DX: M79.10 Myalgia, unspecified site (principal); E55.9 Vitamin D deficiency, unspecified; E78.2 Mixed hyperlipidemia
CPT/HCPCS: 36415; 80053; 80061; 82306; 82550; 83735; 83970; 84165; 84443; 85025; 85652; 86140

== ENCOUNTER → 2022-06-10 | Outpatient (CLI) | payer MEDICARE, OTHER, SELFPAY ==
--- NOTE | 2022-06-10 11:54 | US_ITS ---
STUDY: THYROID ULTRASOUND REASON FOR EXAM: Female, 71 years old. elevated parathyroid hormone TECHNIQUE: Ultrasound evaluation of the thyroid was performed with real-time and static vaughn-scale imaging. COMPARISON: None. FINDINGS: RIGHT LOBE: The right lobe of the thyroid gland measures 4.5 x 1.7 x 1.2 cm. There is a homogeneous echotexture. There are no demonstrated solid, cystic or complex lesions. LEFT LOBE: The left lobe of the thyroid gland measures 3.8 x 1.2 x 1.2 cm. There is a homogeneous echotexture. There is a simple 3 mm cyst. ISTHMUS: The isthmus measures 2.5 mm. The regional lymph nodes are normal. US/Thyroid IMPRESSION: Normal size and homogeneous thyroid gland with simple 3 mm cyst in the left lobe. No suspicious findings. Electronically Signed: Fermín Jiménez MD at 12:42 EDT ,
== END | disposition home or self-care (01) ==
LOC: US 11:54
PROVIDERS: PCP Family Medicine; Referring Provider Family Medicine; Visit Provider Family Medicine
DX: E34.9 Endocrine disorder, unspecified (principal)
CPT/HCPCS: 76536

== ENCOUNTER → 2022-08-27 | Outpatient (CLI) | payer MEDICARE, OTHER, SELFPAY ==
--- NOTE | 2022-08-27 11:03 | BD_ITS ---
STUDY: DUAL ENERGY X-RAY ABSORPTIOMETRY / DXA REASON FOR EXAM: Female, 71 years old. [id number] TECHNIQUE: Bone Mineral Density (BMD) measurements of lumbar spine and bilateral hips were obtained. COMPARISON: None. FINDINGS: Lumbar Spine (L1-L4): g/cm2 (0.888) / T-score (-1.2) / Z-score (0.9) Findings are suggestive of osteopenia with a low fracture risk. Left Femur Total: g/cm2 (0.835) / T-score (-0.9) / Z-score (0.7) Left Femoral Neck: g/cm2 (0.706) / T-score (-1.3) / Z-score (0.6) Right Femur Total: g/cm2 (0.899) / T-score (-0.4) / Z-score (1.2) Right Femoral Neck: g/cm2 (0.805) / T-score (-0.4) / Z-score (1.4) BD/Dexa Bone Density Study IMPRESSION: The patient is considered osteopenic as outlined below according to World Duke Organization (WHO) criteria with a low fracture risk. Reference Information: The T-score is the number of standard deviations above or below the standard which is normal for young adults at their peak bone mineral density. The World Health Organization (WHO) interprets the T-scores as follows: Above -1 Normal bone density Between -1 and -2.5 Osteopenia Equal to / or below -2.5 Osteoporosis As a practical clinical guideline, osteopenia may be graded as follows: Mild -1 through -1.5 Moderate -1.6 through -2.0 Severe -2.1 through -2.4 The Z-score is the number of standard deviations above or below age-matched controls. A Z-score of less than -1.5 would be considered abnormal. References: 1. NIH Osteoporosis and Related Bone Diseases www osteo.org 2. International Society for Clinical Densitometry www iscd.org 3. National Osteoporosis Foundation www nof.org Electronically Signed: Devon Orozco MD at 14:58 EST ,
== END | disposition home or self-care (01) ==
PROVIDERS: PCP Family Medicine; Visit Provider Family Medicine
DX: M85.80 Other specified disorders of bone density and structure, unspecified site (principal); Z78.0 Asymptomatic menopausal state
CPT/HCPCS: 77080

== ENCOUNTER → 2023-02-02 | Outpatient (CLI) | payer MEDICARE, OTHER, SELFPAY ==
[2023-02-02 16:00] LABS: Microalbumin,Random Urine < 5.0 mg/L (NO RANGE EST.)
[2023-02-02 16:08] LABS: Anion Gap 7 (5-15); BUN 20 mg/dL (7-18); BUN/Creat Ratio 27.5 RATIO (10-20); Calcium,Total 9.3 mg/dL (8.5-10.1); Chloride 105 mmol/L (98-107); Creatinine, Serum 0.73 mg/dL (0.55-1.02); EST Glomerular Filtration Rate 84 mL/min (>60); Est Glom Filt Rate - Afr Amer 101 mL/min (>60); Glucose 80 mg/dL (74-106); Potassium 4.5 mmol/L (3.5-5.1); Sodium Level 138 mmol/L (136-145)
== END | disposition home or self-care (01) ==
LOC: MFPLAB 14:07
PROVIDERS: PCP Family Medicine; Visit Provider Family Medicine
DX: I10 Essential (primary) hypertension (principal)
CPT/HCPCS: 36415; 80048; 82043; 82570

== ENCOUNTER 2023-02-08 09:30 | Outpatient (RCR) | payer MEDICARE, OTHER, SELFPAY ==
--- NOTE | 2022-12-08 09:56 | HP.PTEVAL ---
Patient's Visit Information SCOTT BRADLEY is a 72 year old F referred to Physical Therapy by Dr. Gunnar Lord MD with a diagnosis of OA knee s/p L TKA 12/03/22. Date of Evaluation: 12/08/22 Physical Therapist: Wagner Aguilar, ANGELAT, OCS, CSCS - Visit Plan Frequency: 2-3x /Week Duration: 4-6 Weeks Plan: 2-3x/week for 3-6 weeks for. 1. patellar mobs and ROM L knee. 2. strength progression L knee,. 3. gait and stair training and progression. 4. ice as needed. educate management of condition, inflammation - Subjective 5 days ago had L TKA. Pain over weekend was manageable at 5/10 with sitting and hard to get comfortable, Can be 0 if comfortable. Taking oxy last night as she could not get comfortable, was mostly doing ES Tylenol. Walking with wh walker all the time and getting around OK. Sleep is hard to get comfortable. Doing AP SLR, HS and QS. Doing thema couple times per day. Wants to walk and workout in gyma dn do senior fitness classes when she is done. Steps at home are a couple to get in and using R. R knee doing OK. - Pain L knee Pain Intensity (Out of 10): 0 Pain Intensity Range: 0, 5 - Objective L 17.5 inch joint and 21.5 6 inch sp. Wound dressed appropriately and will see doc in two days. quad 14 # and HS 18# L. -4 to 78 AROM supine, 82 sitting, SLR with 2 degree lag today. Walks with wh walker with stiff L leg mod I, trasnfers chair and bed I, lifting leg well and keeping knee stiff. Stands without AD 60 seconds easily and 30 ec. Walks with out AD safe adn I on firm surface, VC needed to bend knee. - Balance/Special Test Scores Lower Extremity Functional Score: 7 TUG Test Time Seconds: 15 WOMAC Total Score: 4 WOMAC Percentatge: 95.8400 - Goals Goal 1:: ST: 0-110. AROM for mobility purposes and comfort Goal Time Frame: 2-4 Weeks Goal 2:: ST: sleep through night without discomfort Goal Time Frame: 2-4 Weeks Goal 3:: LT: Walk without AD I community without gait deviations Goal Time Frame: 4-6 Weeks Goal 4:: LT: stairs reciprocal with one rail I Goal Time Frame: 4-6 Weeks Goal 5:: LEFS 55 Goal Time Frame: 4-6 Weeks - Rehabilitation Potential Physical Therapy Diagnosis: L TKA and resulting weakness and stiffness. Rehabilitation Potential: Good - Anticipated Interventions Patient/Client Instruction: Educate patient on: Condition, Plan of Care For the Purpose of:: To decrease pain, To decrease swelling/inflammation, To increase ROM, To improve muscle performance and motor function, To increase tolerance to activity/condition/position Therapeutic Exercise to Include: Strength training, Flexibilty training, Gait and locomotor training, Passive ROM, Active ROM For the Purpose of:: To decrease pain, To decrease swelling/inflammation, To increase ROM, To improve nutrient delivery to tissue Manual Therapy Techniques to Include: Scar massage, Mobilization, Passive ROM, Soft tissue mobilization For the Purpose of:: To decrease pain, To increase ROM, To improve nutrient delivery to tissue, To improve muscle performance and motor function Cryotherapy (ice pack, ice massage): Yes For the Purpose of:: To decrease swelling/inflammation Thank you for the opportunity to evaluate your patient. For Medicare and Medicare HMO plans, please review the plan of care and approve it. It will need to be FAXED BACK to us at [phone] for Medicare purposes. For Medicare only, by signing this I certify the plan of care. Please let me know if there are questions or concerns regarding this plan of care. Physician Signature: Date:
--- NOTE | 2023-02-08 10:20 | HP.PTDCSUM_ITS ---
It has been my pleasure to treat SCOTT BRADLEY referred by Dr. Gunnar Lord MD, with the diagnosis of OA knee s/p L TKA 12/03/22 for a total of 25 visit(s). Discharge Date: 02/08/23 Please see the following information for a summary of their discharge status. Subjective: Doc wants to do surgery on R knee but she does not want it. L knee is doing well going up steps but still some pain descending. Pain only to 2- 3/10 worse with sitting too long. Pain L lateral is the worst part 3/10 in ITB and doing those stretches. Doctor said to keep working it. R knee only hurts descending steps or downhill. L knee Pain Intensity (Out of 10): 1 % Improvement: 90 Objective/Function: Steps reciprocal with one rail up and no problems, descending hurts anteriorly on L slightly at end stance, still slightly weak but manageable. L knee hurts descending also requiring railing. 0-108 AROM adn 113 PROM. strength quad 30 adn HS 22#. girth 16 inches and 19.5 at 6 SP. Goal 1:: ST: 0-110. AROM for mobility purposes and comfort Goal Progress: 0-108 Goal 2:: ST: sleep through night without discomfort Goal Progress: Goal Met Goal 3:: LT: Walk without AD I community without gait deviations Goal Progress: Goal Met Goal 4:: LT: stairs reciprocal with one rail I Goal Progress: Goal Met Goal 5:: LEFS 55 Goal Progress: WOMAC 15 Plan: d/c to HEP Discharge Comments: Will continue via gym ex. If there are questions or concerns regarding this patient's physical therapy, please feel free to call me at [phone]. Thank you for the referral of this patient. Sincerely, Wagner Aguilar, DPT, OCS, CSCS Balance/Gait/Functional tests - Balance/Special Test Scores Lower Extremity Functional Score: 7 TUG Test Time Seconds: 9 Tug Test: <10 sec.=free mobile WOMAC Total Score: 15 WOMAC Percentage: 84.3800
== END 2023-02-08 13:22 | disposition home or self-care (01) ==
LOC: PT 09:30
PROVIDERS: PCP Family Medicine; Referring Provider Orthopaedic Surgery; Visit Provider Orthopaedic Surgery
DX: M17.0 Bilateral primary osteoarthritis of knee (principal)
CPT/HCPCS: 97016; 97110; 97161; 97164; 97530

== ENCOUNTER → 2024-01-03 | Outpatient (CLI) | payer MEDICARE, OTHER, SELFPAY ==
[2024-01-06 04:08] LABS: ANTINUCLEAR ANTIBODIES DIRECT Negative (Negative); Beef <0.10 kU/L (Class 0); Chocolate <0.10 kU/L (Class 0); Codfish <0.10 kU/L (Class 0); Corn <0.10 kU/L (Class 0); Egg, Whole <0.10 kU/L (Class 0); Milk (Cow) <0.10 kU/L (Class 0); Mussels <0.10 kU/L (Class 0); Peanut <0.10 kU/L (Class 0); Pork <0.10 kU/L (Class 0); Salmon <0.10 kU/L (Class 0); Shrimp <0.10 kU/L (Class 0); Soybean <0.10 kU/L (Class 0); Tuna <0.10 kU/L (Class 0); Wheat <0.10 kU/L (Class 0)
[2024-01-07 00:07] LABS: Complement CH50 57 U/mL (>41); Endomysial Antibody IgA Negative (Negative); Immunoglobulin A 189 mg/dL (64-422); Immunoglobulin E 173 IU/mL (6-495); Immunoglobulin G 664 mg/dL (586-1602); Immunoglobulin M 57 mg/dL (26-217); t-Transglutaminase IgA <2 U/mL (0-3)
[2024-01-07 05:07] LABS: Immunoglobulin A 185 mg/dL (64-422)
== END | disposition home or self-care (01) ==
LOC: MFPLAB 10:36
PROVIDERS: PCP Family Medicine; Visit Provider Family Medicine
DX: L50.9 Urticaria, unspecified (principal)
CPT/HCPCS: 36415; 82784; 82785; 83516; 86003; 86005; 86038; 86162; 86255

== ENCOUNTER 2024-02-11 10:00 | Outpatient (RCR) | payer MEDICARE, OTHER, SELFPAY ==
--- NOTE | 2024-01-26 09:37 | HP.PTEVAL_ITS ---
Patient's Visit Information Visit Information Visit Information: SCOTT BRADLEY is a 73 year old F referred to Physical Therapy by Dr. Wagner Abreu MD with a diagnosis of BPV. Date of Evaluation: 01/26/24 Physical Therapist: Wagner Aguilar, DPT, OCS, CSCS Visit Plan Frequency: 1-2x /Week Duration: 2-4 Weeks Plan: 1-2x/week as needed for positional treatments and might need confidence building exercises/habituation to movement. IE today treated with L modified keisha and teach BD ex 8 reps daily if not 100% better tomorrow. Will f/u in two weeks(due to my vacation) but can schedule with [facility] next week if bad dizzyness returns. Subjective Subjective: has had some spinning a couple weeks ago. Some maneuvers helped get rid of spinning but still feels a little off with quick movements. This may have started one night sleeping on L side with grandson. Activities pretty normal but feels goofy some times especially with head movements. sleeping OK. Still able to workout at [employer] slowly. Has had bloodwork from doctor due to Covid and RSV shot and rash earlier int he year, did 6 weeks on prednisone. Objective Objective: Walks i into PT safe adn I, Transfers I chair and bed. cervical aROM WFL adn without pain as is UE AROM. - R HD + L HD for very slight goofy feeling 5 seconds and slight up torsional nystagmus, Treated with L modified keisha and then negative test post treatment. Balance/Special Test Scores Functional Gait Assessment Score: 27 % Disability: 10.0000 Dizziness Score: 18 Goals Goal 1:: Lie on L side without any symptoms Goal Time Frame: 2-4 Weeks Goal 2:: Pt feel 100% back to normal Goal Time Frame: 2-4 Weeks Goal 3:: DHI score 2 or less Goal Time Frame: 2-4 Weeks Rehabilitation Potential Physical Therapy Diagnosis: positional dizzyness and lack of confidence in movements. Rehabilitation Potential: Good Anticipated Interventions Patient/Client Instruction: Educate patient on: Condition For the Purpose of:: To decrease pain, To increase ROM, To improve nutrient delivery to tissue, To improve muscle performance and motor function, To increase tolerance to activity/condition/position and To improve ability of physical actions for home/community/work/leisure Comment: psoitional and vestibular ex as needed For the Purpose of:: To improve muscle performance and motor function, To increase tolerance to activity/condition/position, To improve ability of physical actions for home/community/work/leisure and To improve gait and locomotor functions Text: Thank you for the opportunity to evaluate your patient. For Medicare and Medicare HMO plans, please review the plan of care and approve it. It will need to be FAXED BACK to us at [phone] for Medicare purposes. For Medicare only, by signing this I certify the plan of care. Please let me know if there are questions or concerns regarding this plan of care. Physician Signature: Date:
--- NOTE | 2024-02-11 10:09 | HP.PTDCSUM_ITS ---
Discharge Summary D/C summary: It has been my pleasure to treat SCOTT BRADLEY referred by Dr. Wagner Abreu MD, with the diagnosis of BPV for a total of 2 visit(s). Discharge Date: 02/11/24 Please see the following information for a summary of their discharge status. Subjective Subjective: Watching [employer] alot. I think I am OK overall. Had two days of the exercise and then did not need it. Is gunshy but no spinning or dizzyness. Activity is normal and moving well. Overall Improvement % Improvement: 100 Objective Objective/Function: - B hallpike tia balance is better with head movements. Pt getting confidence back. Goals Goal 1:: Lie on L side without any symptoms Goal Progress: won't do it. Goal 2:: Pt feel 100% back to normal Goal Progress: Goal Met Goal 3:: DHI score 2 or less Goal Progress: Goal Met Plan Plan: d/c D/C Information d/c sentence: If there are questions or concerns regarding this patient's physical therapy, please feel free to call me at [phone]. Thank you for the referral of this patient. Sincerely, Wagner Aguilar, DPT, OCS, CSCS Balance/Gait/Functional tests Balance/Special Test Scores Functional Gait Assessment Score: 28 % Disability: 6.6700 Dizziness Score: 2 Improvement % Improvement: 100
== END 2024-02-11 12:42 | disposition home or self-care (01) ==
LOC: PT 10:00
PROVIDERS: PCP Family Medicine; Referring Provider Family Medicine; Visit Provider Family Medicine
DX: H81.10 Benign paroxysmal vertigo, unspecified ear (principal)
CPT/HCPCS: 97161; 97530

== ENCOUNTER → 2024-03-28 | Outpatient (CLI) | payer MEDICARE, OTHER, SELFPAY ==
[2024-03-28 10:42] LABS: Vitamin D,25 Hydroxy 38.3 ng/mL
[2024-03-28 11:05] LABS: Estradiol < 11.0 pg/mL; Ferritin 26 ng/mL (8-252); Free T3 2.8 pg/mL (2.18-3.98); T4 Free Direct 1.02 ng/dL (0.76-1.46); Thyroid Stim Hormone (TSH) 1.78 uIU/mL (0.358-3.74)
[2024-03-29 15:08] LABS: ANTINUCLEAR ANTIBODIES DIRECT Negative (Negative); PROGESTERONE <0.1 ng/mL (.)
[2024-04-04 11:59] LABS: Estrogen, Total, Serum 43 pg/mL (40-244); Testosterone, % Free 1.29 % (0.50-2.80); Testosterone, Total 8 ng/dL (3-67); Thyroid Peroxidase AB < 9 IU/mL (0-34)
== END | disposition home or self-care (01) ==
LOC: MFPLAB 08:42
PROVIDERS: PCP Family Medicine; Visit Provider Family Medicine
DX: L65.9 Nonscarring hair loss, unspecified (principal)
CPT/HCPCS: 36415; 82306; 82533; 82627; 82670; 82672; 82728; 84144; 84402; 84403; 84439; 84443; 84481; 86038; 86376; 82626

== ENCOUNTER → 2024-04-20 | Outpatient (CLI) | payer MEDICARE, OTHER, SELFPAY ==
--- NOTE | 2024-04-20 08:30 | RAD_ITS ---
STUDY: X-RAY - ESOPHAGUS (BARIUM SWALLOW) WITH FLUOROSCOPY REASON FOR EXAM: Female, 73 years old. Dysphagia at times TECHNIQUE: 109 fluoroscopic views. view(s) of the esophagus were obtained following swallowing of barium. FLUOROSCOPY TIME (if supplied): (36 seconds) minutes/seconds. 7.3 mGy. COMPARISON: None. FINDINGS: There is no demonstrated esophageal foreign body. There is no demonstrated stricture or mucosal abnormality. Normal gastroesophageal junction, without a demonstrated hiatal hernia. The patient ingested a 12 mm tablet of barium. The tablet is trapped at the gastroesophageal junction. Normal visualized aortic arch and descending thoracic aorta. Normal visualized pulmonary parenchyma. There are diffuse degenerative changes of the visualized thoracic spine. Mild dextroscoliosis. RAD/Esophagus Dual Contrast IMPRESSION: The patient ingested a 12 mm tablet of barium. The tablet is trapped at the gastroesophageal junction. Electronically Signed: Devon Orozco MD at 9:28 EDT ,
== END | disposition home or self-care (01) ==
PROVIDERS: PCP Family Medicine; Referring Provider Family Medicine; Visit Provider Family Medicine
DX: R13.10 Dysphagia, unspecified (principal)
CPT/HCPCS: 74221

== ENCOUNTER → 2025-01-17 | Outpatient (CLI) | payer MEDICARE, OTHER, SELFPAY ==
--- NOTE | 2025-01-17 09:03 | BD_ITS ---
PROCEDURE: DEXA BONE DENSITY STUDY 01/17/2025 REASON FOR EXAM: F, age 74 y/o . Postmenopausal. TECHNIQUE: DXA scan of sites with data reported below. REFERENCE LINKS: [facility] Position[facility] COMPARISON: Prior study dated August 27, 2022. FINDINGS: BMD and T-SCORES Lumbar spine: 0.937 g/cm2, T-score -0.7 Levels: L1 through L4 Change from prior: Improvement of 5.5%. Left femoral neck: 0.700 g/cm2, T-score -1.3 Femoral neck comparison data not recommended for monitoring change. Left total hip: 0.878 g/cm2, T-score -0.5 Change from prior: Improvement of 5.2%. Right femoral neck: 0.832 g/cm2, T-score -0.1 Femoral neck comparison data not recommended for monitoring change. Right total hip: 0.880 g/cm2, T-score -0.5 Change from prior: Loss of 2.1%. The World Health Organization has defined the following categories based on bone density: Normal bone density: T-score equal to or greater than -1.0 Osteopenia: T-score between -1.0 and -2.5 Osteoporosis: T-score equal to or less than -2.5 The patient does meet the pharmacological treatment recommendations for prevention of osteoporosis. BD/Dexa Bone Density Study IMPRESSION: OSTEOPENIA. Recommend follow-up as clinically warranted. Reading Location: [facility]
== END | disposition home or self-care (01) ==
PROVIDERS: PCP Family Medicine; Referring Provider Nurse Practitioner Family; Visit Provider Nurse Practitioner Family
DX: M81.0 Age-related osteoporosis without current pathological fracture (principal)
CPT/HCPCS: 77080